=== PATIENT | male | born 1965 | race Caucasian/White ===

== ENCOUNTER 2017-05-03 11:46 | Emergency (ER) | payer OTHER ==
[~2017-05-03] VITALS: Ht 188 cm; Wt 93.0 kg
[2017-05-03 11:47] VITALS: BP 101/61
== END 2017-05-03 13:17 | disposition home or self-care (01) ==
LOC: ER 11:49
DX: H00.022 Hordeolum internum right lower eyelid (principal); M06.9 Rheumatoid arthritis, unspecified; F17.200 Nicotine dependence, unspecified, uncomplicated; F10.10 Alcohol abuse, uncomplicated; Z88.2 Allergy status to sulfonamides
CPT/HCPCS: 99283; A4606; Z7610

== ENCOUNTER 2017-09-10 13:48 | Emergency (ER) | payer OTHER ==
[~2017-09-10] VITALS: Ht 188 cm; Wt 107.0 kg
[2017-09-10 15:14] LABS: BASOPHILS % (AUTO) 0.8 % (0.0-2.0); EOSINOPHILS % (AUTO) 1.5 % (0.0-6.0); HEMATOCRIT 36 % (39-51); HEMOGLOBIN 12.4 g/dL (13.5-17.5); LYMPHOCYTES # (AUTO) 1.6 /CMM (0.8-4.8); LYMPHOCYTES % (AUTO) 28.1 % (20.0-44.0); MEAN CORPUSCULAR HGB CONC 35 g/dl (31.0-36.0); MEAN CORPUSCULAR VOLUME 109 fL (80-96); MONOCYTES # (AUTO) 0.4 /CMM (0.1-1.30); MONOCYTES % (AUTO) 6.9 % (2.0-12.0); NEUTROPHILS # (AUTO) 3.4 /CMM (1.8-8.9); NEUTROPHILS % (AUTO) 62.7 % (43.0-81.0); PLATELET COUNT (AUTO) 276 /CMM (150-450); RDW COEFFICIENT OF VARIATION 13.4 (11.5-15.0); WHITE BLOOD COUNT (AUTO) 5.5 K/uL (4.3-11.0)
[2017-09-10 15:22] LABS: CALCIUM, SERUM 8.9 mg/dL (8.5-10.1); CREATININE 0.5 mg/dL (0.6-1.3); POTASSIUM 3.3 mmol/L (3.5-5.1)
[2017-09-10 15:27] LABS: ALBUMIN 3.2 g/dL (3.4-5.0); BILIRUBIN,DIRECT 0.2 mg/dL (0.0-0.2); BILIRUBIN,TOTAL 0.5 mg/dL (0.2-1.0)
[2017-09-10 16:27] VITALS: BP 130/80
--- NOTE | 2017-09-10 16:28 | NUR ---
Patient discharged to home in stable condition. Written and verbal after care instructions given. Patient verbalizes understanding of instruction.
== END 2017-09-10 16:30 | disposition home or self-care (01) ==
LOC: ER 13:51
DX: K59.00 Constipation, unspecified (principal); M06.9 Rheumatoid arthritis, unspecified; F17.200 Nicotine dependence, unspecified, uncomplicated; Z88.2 Allergy status to sulfonamides
CPT/HCPCS: 36415; 74176; 80048; 80076; 83690; 85025; 99285; A4606; Z7610

== ENCOUNTER 2018-11-29 11:06 | Emergency (ER) | payer OTHER ==
[~2018-11-29] VITALS: Ht 188 cm; Wt 81.6 kg
[2018-11-29 11:25] VITALS: BP 111/73
--- NOTE | 2018-11-29 11:46 | NUR ---
HUMIRA SHOT GIVEN ON R THIGH, WELL TOLERATED, NO REACTION NOTED.
--- NOTE | 2018-11-29 11:46 | NUR ---
Patient discharged to home in stable condition. Written and verbal after care instructions given. Patient verbalizes understanding of instruction.
== END 2018-11-29 11:47 | disposition home or self-care (01) ==
LOC: ER 11:06
DX: Z00.8 Encounter for other general examination (principal); M06.9 Rheumatoid arthritis, unspecified; M79.7 Fibromyalgia; F17.200 Nicotine dependence, unspecified, uncomplicated; Z88.2 Allergy status to sulfonamides

== ENCOUNTER 2020-11-29 21:39 | Inpatient (IN) | payer OTHER ==
[~2020-11-29] VITALS: Ht 189.2 cm; Wt 81.2 kg
--- NOTE | 2020-11-29 21:53 | NUR ---
SON ([facility]) [phone]
[2020-11-29 22:15] LABS: BASOPHILS % (AUTO) 0.2 % (0.0-2.0); HEMATOCRIT 45 % (39-51); HEMOGLOBIN 14.5 g/dL (13.5-17.5); LYMPHOCYTES # (AUTO) 0.4 K/uL (0.8-4.8); LYMPHOCYTES % (AUTO) 6.3 % (20.0-44.0); MEAN CORPUSCULAR HGB CONC 33 g/dl (31.0-36.0); MEAN CORPUSCULAR VOLUME 111 fL (80-96); MONOCYTES # (AUTO) 0.5 K/uL (0.1-1.30); MONOCYTES % (AUTO) 8.2 % (2.0-12.0); NEUTROPHILS % (AUTO) 85.3 % (43.0-81.0); RED BLOOD CELL COUNT(AUTO) 3.99 MIL/uL (4.5-6.0); WHITE BLOOD COUNT (AUTO) 5.9 K/uL (4.3-11.0)
--- NOTE | 2020-11-29 22:15 | NUR ---
PT OUT FOR CT.
[2020-11-29 22:30] LABS: CALCIUM, SERUM 8.5 mg/dL (8.5-10.1); CARBON DIOXIDE 16 mmol/L (21-32); CHLORIDE 90 mmol/L (98-107); CREATININE 1.1 mg/dL (0.6-1.3); GLUCOSE 322 mg/dL (74-106); POTASSIUM 5.5 mmol/L (3.5-5.1); SODIUM SERUM 137 mmol/L (136-145); UREA NITROGEN, BLOOD 10 mg/dL (7-18)
[2020-11-29] MEDS ORDERED: IV NS 0.9% 1,000 ML BAG IV ONE (22:30)
[2020-11-29] MEDS ORDERED: ONDANSETRON HCL/PF 4 MG/2 ML VIAL IV ONE (22:30)
--- NOTE | 2020-11-29 22:40 | NUR ---
PT RETURNED TO ER ROOM 1
[2020-11-29] MEDS ORDERED: ONDANSETRON HCL/PF 4 MG/2 ML VIAL ONE (22:42)
[2020-11-29 22:46] LABS: ALANINE AMINOTRANSFERASE 43 U/L (12-78); ALBUMIN 4.3 g/dL (3.4-5.0); ALKALINE PHOSPHATASE 137 U/L (46-116); ASPARTATE AMINOTRANSFERASE 139 U/L (15-37); BILIRUBIN,DIRECT 1.1 mg/dL (0.0-0.2); BILIRUBIN,TOTAL 2.2 mg/dL (0.2-1.0); LIPASE 54 U/L (73-393)
[2020-11-29 23:00] LABS: ABG BASE EXCESS -6.8 mmol/L; ABG OXYGEN SATURATION 96.4 % (92.0-98.5); ABG PCO2 25.8 mmHg (35.0-45.0); ABG PO2 87.6 mmHg (75.0-100.0); AaDO2 31.2 mmHg; COHb 0.9 % (0.5-1.5); MetHb 0.3 % (0.0-1.5); O2Hb 95.2 % (94.0-97.0); SITE, ABG Left Radial; VENT MODE, BG Room Air
[2020-11-29] MEDS ORDERED: INSULIN REGULAR, HUMAN 100 UNIT/ML 10 ML VIAL SQ ONE (23:00)
[2020-11-29] MEDS ORDERED: INSULIN REGULAR, HUMAN 100 UNITS in IV NS 0.9% 100 ML IV PRN (23:00)
--- NOTE | 2020-11-29 23:00 | NUR ---
MRSA SWAB COLLECTED AND SENT TO LAB. PATIENT'S BELONGINGS LIST DONE.
[2020-11-29] MEDS: IV NS 0.9% 1,000 ML BAG IV ONE ×2 (23:07)
[2020-11-29] MEDS ORDERED: INSULIN REGULAR, HUMAN 100 UNIT/ML 10 ML VIAL ONE (23:10)
--- NOTE | 2020-11-29 23:13 | NUR ---
SPOKE WITH CARLOS CLIPPER MACHINE FOR CLINICAL REPORT. PT IS OK AND AUTHORIZED TO STAY HERE.
[2020-11-29 23:19] LABS: ACETAMINOPHEN < 2 ug/ml (10-30)
[2020-11-29 23:33] LABS: CALCIUM, SERUM 8.7 mg/dL (8.5-10.1); CREATININE 1.1 mg/dL (0.6-1.3); POTASSIUM 5.6 mmol/L (3.5-5.1)
--- NOTE | 2020-11-29 23:33 | NUR ---
LACTIC ACID 4.4
[2020-11-29 23:39] LABS: LYMPHOCYTES % (MANUAL) 5 % (16-48); MONOCYTES % (MANUAL) 12 % (0-11.0); NEUTROPHILS % (MANUAL) 83 (42-76)
[2020-11-29 23:41] LABS: PLATELET COUNT (AUTO) 52 K/uL (150-450)
[2020-11-29] MEDS ORDERED: PIPERACILLIN /TAZOBACTAM 3.375 G VIAL IV ONE (23:43)
[2020-11-30] VITALS (11 sets, daily range): BP systolic 117–134; BP diastolic 69–79
--- NOTE | 2020-11-30 00:22 | NUR ---
PT IS TOLERATING THE IVF WELL, NO S/S OF INFILTRATION NOTED. DENIES PAIN.
[2020-11-30] MEDS ORDERED: Z GUARD REMEDY 2 OZ OINT TP PRN (00:30)
[2020-11-30] MEDS ORDERED: IV NS 0.9% 1,000 ML BAG IV ONE (00:30)
[2020-11-30] MEDS ORDERED: ONDANSETRON HCL/PF 4 MG/2 ML VIAL IVP PRN (00:30)
[2020-11-30] MEDS ORDERED: MAG HYDROX/AL HYDROX/SIMETH 30 ML UDC PO PRN (00:30)
[2020-11-30] MEDS ORDERED: MAGNESIUM HYDROXIDE 30 ML UDC PO PRN (00:30)
[2020-11-30 01:07] LABS: BILIRUBIN,URINE MODERATE (NEGATIVE); COLOR,URINE YELLOW (YELLOW); LEUKOCYTE ESTERASE ,URINE Negative (NEGATIVE); NITRITE, URINE Negative (NEGATIVE); PROTEIN,URINE 100 mg/dl (NEGATIVE); UGLUCOSE Negative (NEGATIVE)
--- NOTE | 2020-11-30 01:59 | NUR ---
NS FLUIDS COMPLETED INFUSED TOTAL OF 2.5 L NO S/S OF INFILTRATION. STILL WAITING FOR BED TO BE ADMITTED.
--- NOTE | 2020-11-30 02:40 | NUR ---
LACTIC ACID 2.3
[2020-11-30] MEDS ORDERED: INSULIN REGULAR, HUMAN 100 UNIT/ML 10 ML VIAL ONE (03:01)
--- NOTE | 2020-11-30 04:36 | NUR ---
STARTED INSULIN DRIP AT 2.34 U/HR ORDERED. CONTIUE TO MONITOR. PT SHOW NO DISTRESS OR DISCOMFORT, NO S/S OF HYPO OR HYPERGLYCEMIA NOTED. Addendum: 11/30/20 at 0705 by BRIGID STARTED INSULIN DRIP AT 0307 AT 1.89 UNITS/HR BS WAS 126
[2020-11-30] MEDS: INSULIN REGULAR, HUMAN 100 UNIT in IV NS 0.9% 99 ML IV PRN ×2 (05:40→06:34)
[2020-11-30] MEDS: IV D5/0.45 NACL 1,000 ML IV PRN ×2 (05:41→18:35)
[2020-11-30] MEDS ORDERED: PIPERACILLIN /TAZOBACTAM 3.375 G in IV D5W 50 ML IV ONE ×2 (06:00)
[2020-11-30] MEDS ORDERED: PIPERACILLIN /TAZOBACTAM 3.375 G VIAL IV ONE (06:17)
--- NOTE | 2020-11-30 08:00 | NUR ---
LAB AT BEDSIDE
--- NOTE | 2020-11-30 08:12 | NUR ---
COVID SWAB DONE AND SENT TO LAB
[2020-11-30] MEDS ORDERED: TURM500C9 PO (08:25)
[2020-11-30] MEDS ORDERED: ACET-2605 PO (08:25)
[2020-11-30] MEDS ORDERED: GLUC100017 PO (08:25)
[2020-11-30] MEDS ORDERED: BUSP5TAB3 PO (08:25)
[2020-11-30] MEDS ORDERED: ONDA-97 PO (08:25)
[2020-11-30 08:28] LABS: CALCIUM, SERUM 7.8 mg/dL (8.5-10.1); POTASSIUM 3.8 mmol/L (3.5-5.1)
[2020-11-30] MEDS ORDERED: PANTOPRAZOLE 40 MG VIAL IV SCH (09:00)
[2020-11-30] MEDS ORDERED: PANTOPRAZOLE 40 MG VIAL ONE (09:27)
[2020-11-30] MEDS ORDERED: PIPERACILLIN /TAZOBACTAM 3.375 G in IV D5W 50 ML IV SCH (12:00)
[2020-11-30] MEDS: PIPERACILLIN /TAZOBACTAM 3.375 G in IV D5W 100 ML IV SCH ×2 (12:09→19:52)
[2020-11-30] MEDS ORDERED: busPIRone 5 MG TABLET PO PRN (15:30)
[2020-11-30 15:43] LABS: POTASSIUM 3.9 mmol/L (3.5-5.1)
[2020-11-30] MEDS ORDERED: busPIRone 5 MG TABLET ONE (16:28)
--- NOTE | 2020-11-30 17:06 | NUR ---
room 258
--- NOTE | 2020-11-30 17:37 | NUR ---
GAVE REPORT TO CEFERINO OCAMPO FOR JOSÉ MIGUEL
--- NOTE | 2020-11-30 18:30 | NUR ---
RN NOTES PT RECEIVED FROM ER , INSULIN DRIP AT 4 U/HR OF AND D51/2 NS AT 200CC/HR . NO SIGN AND SYMPTOMS OF DISTRESS NOTED .
--- NOTE | 2020-11-30 18:30 | NUR ---
ADMISSION NOTE PT ARRIVED TO ICU ESCORTED BY RN ON ED GURSEBASTOPOL. PT IS A&OX4, DISPLAYING NO S/S OF DISTRESS, PT ENDORSES NO PAIN AND IS BREATHING EVEN AND UNLABORED ON RA. DAMARIS WESLEY RECEIVED REPORT OF PT PRIOR TO ARRIVAL. PT TRANSFERRED FROM ED RSEBASTOPOL TO HOSP BED VIA DRAW SHEET. PT GIVEN CLEAN LINEN AND PLACED ON MONITOR. VS ARE 98.6 F, 87 HR, 92% SPO2, RR 20, 120/79. ADMISSION WILL BE ENDORSED TO [facility].
--- NOTE | 2020-11-30 19:15 | NUR ---
RECEIVED PT ON BED AWAKE ON RA SPO2 98% NO SIGN OF RESPIRATORY DISTRESS, TELE MONITOR READS SINUS RHYTHM 80'S, HAVE RAC # 20 AND LEFT HAND # 20 IV PATENT AND FLUSHED,WITH ONGOING INSULIN DRIP TO BE TITRATE PER PROTOCOL, AND D5NS @ 200ML/HR INFUSING WELL BED ON LOWEST POSITION AND LOCKED SIDE RAILS UP X2 CALL LIGHT WITHIN REACH WILL CONT TO MONITOR
[2020-11-30] MEDS: BLOOD SUGAR DIAGNOSTIC 1 EACH STRIP IN SCH ×2 (20:08→21:03)
[2020-11-30 20:28] LABS: CALCIUM, SERUM 7.6 mg/dL (8.5-10.1); CREATININE 0.9 mg/dL (0.6-1.3); POTASSIUM 3.3 mmol/L (3.5-5.1)
--- NOTE | 2020-11-30 21:41 | NUR ---
REPORTED TO DR JACKSON THAT PT LATEST BLOOD SUGAR IS 126 AND ANION GAP 13 K+3.3 WITH ORDER TO STOP INSULIN DRIP AND THE IV FLUID, AND ORDER CCHO DIET AND MODERATE SLIDING SCALE INSULIN ACHS NOTED AND CARRIED OUT
[2020-11-30] MEDS ORDERED: DEXTROSE 50%-WATER 50 ML DISP.SYRIN IV PRN (22:00)
[2020-11-30] MEDS: BLOOD SUGAR DIAGNOSTIC 1 EACH STRIP VI SCH (22:13)
[2020-11-30] MEDS: *INSULIN REGULAR(HUMULIN R)HUM 100 UNIT/ML VIAL SQ PRN (22:13)
[2020-11-30] MEDS: POTASSIUM CL. PREMIX PERIPHER. 50 ML IV SCH (23:40)
[2020-11-30] MEDS: IV NS 0.9% 1,000 ML IV SCH (23:41)
[2020-12-01] VITALS (24 sets, daily range): BP systolic 107–130; BP diastolic 67–88
[2020-12-01] MEDS: POTASSIUM CL. PREMIX PERIPHER. 50 ML IV SCH ×2 (00:41→01:43)
[2020-12-01 03:05] LABS: CREATININE, URINE 71.7 MG/DL (30.0-125.0)
[2020-12-01] MEDS: PIPERACILLIN /TAZOBACTAM 3.375 G in IV D5W 100 ML IV SCH ×3 (03:51→19:47)
[2020-12-01 04:28] LABS: BASOPHILS % (AUTO) 0.5 % (0.0-2.0); EOSINOPHILS % (AUTO) 0.5 % (0.0-6.0); HEMATOCRIT 34 % (39-51); LYMPHOCYTES # (AUTO) 1.3 K/uL (0.8-4.8); LYMPHOCYTES % (AUTO) 39.3 % (20.0-44.0); MEAN CORPUSCULAR HGB CONC 35 g/dl (31.0-36.0); MEAN CORPUSCULAR VOLUME 111 fL (80-96); MONOCYTES # (AUTO) 0.3 K/uL (0.1-1.30); MONOCYTES % (AUTO) 10.2 % (2.0-12.0); NEUTROPHILS # (AUTO) 1.7 K/uL (1.8-8.9); NEUTROPHILS % (AUTO) 49.5 % (43.0-81.0); PLATELET COUNT (AUTO) 28 K/uL (150-450); RED BLOOD CELL COUNT(AUTO) 3.11 MIL/uL (4.5-6.0); WHITE BLOOD COUNT (AUTO) 3.4 K/uL (4.3-11.0)
[2020-12-01 04:36] LABS: ALBUMIN 3.2 g/dL (3.4-5.0); BILIRUBIN,TOTAL 1.4 mg/dL (0.2-1.0); CALCIUM, SERUM 7.7 mg/dL (8.5-10.1); CREATININE 0.8 mg/dL (0.6-1.3); PHOSPHORUS 1.3 mg/dL (2.5-4.9); POTASSIUM 3.7 mmol/L (3.5-5.1); TOTAL PROTEIN, SERUM 6.7 g/dL (6.4-8.2)
[2020-12-01 04:48] LABS: THYROID STIMULATING HORMONE 4.529 uIU/mL (0.358-3.74)
[2020-12-01 04:49] LABS: BAND % (MANUAL) 1 % (0.0-5.0); EOSINOPHILS % (MANUAL) 1 % (0-4); LYMPHOCYTES % (MANUAL) 43 % (16-48); MONOCYTES % (MANUAL) 6 % (0-11.0); NEUTROPHILS % (MANUAL) 49 (42-76)
--- NOTE | 2020-12-01 07:00 | NUR ---
PT ON BED AWAKE ON RA NO SIGN OF RESPIRATORY DISTRESS NO PAIN COMPLAINT BED SIDE MONITOR READS SINUS RHYTHM NO SIGNIFICANT CHANGES ON CONDITION NOTED ALL NEEDS ATTENDED WILL CONT TO MONITOR
[2020-12-01] MEDS: BLOOD SUGAR DIAGNOSTIC 1 EACH STRIP VI SCH ×4 (07:34→21:37)
[2020-12-01] MEDS: INSULIN REGULAR, HUMAN 100 UNIT/ML 3 ML VIAL SQ PRN ×2 (07:35→12:14)
[2020-12-01] MEDS: PANTOPRAZOLE 40 MG TABLET.DR PO SCH (08:29)
--- NOTE | 2020-12-01 08:58 | NUR ---
ENDORSED TO JOIE OCAMPO FOR JOSÉ MIGUEL
--- NOTE | 2020-12-01 09:00 | NUR ---
RN NOTES RECEIVED PT FROM AXEL OCAMPO. VS STABLE. WILL CONTINUE TO MONITOR.
[2020-12-01] MEDS: IV NS 0.9% 1,000 ML IV SCH ×2 (09:38→19:30)
--- NOTE | 2020-12-01 12:00 | NUR ---
RN NOTES BLOOD SUGAR OF 120, NO INSULIN COVERAGE.
--- NOTE | 2020-12-01 13:55 | NUR ---
RN NOTES TRANSFERRED PT TO 3W ROOM 326-1 PER PROTOCOL. REPORT GIVEN TO ROBBIE OCAMPO AT BEDSIDE FOR JOSÉ MIGUEL. VS STABLE.
--- NOTE | 2020-12-01 14:00 | NUR ---
RN NOTE PATIENT WAS TRANSFERRED FROM ICU 258 TO RM 326-1. PT WAS BROUGHT UP VIA WHEELCHAIR. RECEIVED BEDSIDE REPORT FROM DAMARIS RADER. A/O X4. ON ROOM AIR, SATURATING WELL AT 95%. BP 130/83 LA 87 RR 18 T 98.3 DENIES ANY PAIN OR DISCOMFORT AT THIS TIME. IV ACCESS ON L HAND #20 G AND R AC #20 G, ZOSYN RUNNING X 25 ML/HR, INTACT AND PATENT. SAFETY MEASURES MAINTAINED. BED IN LOWEST POSITION, BRAKES LOCKED. SIDE RAILS UP X2. CALL LIGHT WITHIN REACH. WILL CONTINUE PLAN OF CARE.
[2020-12-01] MEDS ORDERED: K PHOS NEUTRAL 250 MG TABLET PO ONE (16:00)
--- NOTE | 2020-12-01 18:10 | NUR ---
RN CLOSING NOTE PATIENT RESTING IN BED. A/O X4 ON ROOM AIR, NO SOB NOTED. NO S/S OF RESPIRATORY DISTRESS. DENIES ANY PAIN OR DISCOMFORT AT THIS TIME. IV ACCESS ON L HAND #20 G AND R AC #20, NS X 100 ML/HR, INTACT AND PATENT. DUE MEDS GIVEN ORDERED. ALL NEEDS HAVE BEEN MET AND ATTENDED. SAFETY MEASURES MAINTAINED. BED IN LOWEST POSITION, BRAKES LOCKED. SIDE RAILS UP X2. KEPT CALL LIGHT WITHIN REACH. WILL ENDORSE CONTINUITY OF CARE TO ONCOMING SHIFT.
--- NOTE | 2020-12-01 19:15 | NUR ---
MS RN NOTES RECEIVED ON BED A/8 X4,NO SOB,TRANSFER FROM ICU,WITH SALINE LOCK LEFT HAND INTACT AND PATENT,RIGHT AC SALINE LOCK INTACT AND PATENT,PATIENT WANTS IT TO BE REMOVE IN THE MORNING.PATIENT SAYS HE CANNOT WALK,URINAL AT BEDSIDE, WELL BEDPAN.TABLE WITH IN REACH.CALL LIGHT IN REACH,NEEDS ANTICIPATED.
[2020-12-01] MEDS: ACETAMINOPHEN 325 MG TABLET PO PRN (21:38)
--- NOTE | 2020-12-01 21:38 | NUR ---
MS RN NOTES PAIN MANAGEMENT C/O BACK PAIN,TYLENOL 650MG PO GIVEN PER PATIENT REQUEST
--- NOTE | 2020-12-01 21:45 | NUR ---
MS RN NOTES ACCU-CHECK BLOOD SUGAR CHECK 127,NO INSULIN COVERAGE.
[2020-12-02] MEDS: PIPERACILLIN /TAZOBACTAM 3.375 G in IV D5W 100 ML IV SCH ×3 (04:32→19:01)
[2020-12-02] MEDS: IV NS 0.9% 1,000 ML IV SCH (05:30)
[2020-12-02] MEDS: BLOOD SUGAR DIAGNOSTIC 1 EACH STRIP VI SCH ×4 (05:36→21:09)
--- NOTE | 2020-12-02 05:45 | NUR ---
MS RN NOTES ACCU-CHECK BLOOD SUGAR CHECK 119,NO INSULIN COVERAGE.
[2020-12-02 06:23] LABS: BASOPHILS % (AUTO) 0.6 % (0.0-2.0); EOSINOPHILS % (AUTO) 1.9 % (0.0-6.0); HEMATOCRIT 34 % (39-51); HEMOGLOBIN 12.1 g/dL (13.5-17.5); LYMPHOCYTES # (AUTO) 1.2 K/uL (0.8-4.8); LYMPHOCYTES % (AUTO) 43.8 % (20.0-44.0); MEAN CORPUSCULAR HGB CONC 36 g/dl (31.0-36.0); MEAN CORPUSCULAR VOLUME 114 fL (80-96); MONOCYTES # (AUTO) 0.2 K/uL (0.1-1.30); MONOCYTES % (AUTO) 9.2 % (2.0-12.0); NEUTROPHILS # (AUTO) 1.2 K/uL (1.8-8.9); NEUTROPHILS % (AUTO) 44.5 % (43.0-81.0); RED BLOOD CELL COUNT(AUTO) 2.95 MIL/uL (4.5-6.0); WHITE BLOOD COUNT (AUTO) 2.7 K/uL (4.3-11.0)
--- NOTE | 2020-12-02 06:47 | NUR ---
MS RN NOTES SLEPT WELL AT NIGHT.IV ABX TOLERATED WELL,VOIDING FREELY VIA URINAL,IVF TO KEEP VEIN OPEN.IN NO ACUTE DISTRESS.CALL LIGHT IN REACH,NEEDS ATTENDED.
--- NOTE | 2020-12-02 07:34 | NUR ---
MS RN OPENING NOTE RECEIVED PATIENT ASLEEP IN BED, ALERT AN ORIENTED X 4. NOT IN ANY APPARENT DISTRESS. IV ACCESS LHAND AND LA PATENT AND INTACT. BREATHING IS EVEN AND UNLABORED. TOLERATING WELL ON ROOM AIR. SAFETY MEASURES IN PLACE WITH BED LOCKED AT LOW POSITION AND SIDE RAILS UP X2. CALL LIGHT IS WITHIN REACH. WILL CONTINUE TO MONITOR THROUGHOUT SHIFT.
[2020-12-02 07:46] LABS: POTASSIUM 3.1 mmol/L (3.5-5.1)
[2020-12-02 07:47] LABS: CALCIUM, SERUM 7.6 mg/dL (8.5-10.1); CREATININE 0.5 mg/dL (0.6-1.3); PHOSPHORUS 2.5 mg/dL (2.5-4.9)
[2020-12-02 07:51] LABS: PLATELET COUNT (AUTO) 25 K/uL (150-450)
[2020-12-02 08:00] VITALS: BP 124/79
--- NOTE | 2020-12-02 08:01 | NUR ---
MS RN NOTE RECEIVED CRITICAL LAB VALUE OF PLATELET, SPOKE WITH BONNIE FROM LAB. ANKUSH AVALOS, CHARGE NURSE AND DR. Jose FELIX WITH NO NEW ORDERS.
[2020-12-02] MEDS: PANTOPRAZOLE 40 MG TABLET.DR PO SCH (08:29)
[2020-12-02] MEDS: ACETAMINOPHEN 325 MG TABLET PO PRN ×2 (08:48→19:18)
[2020-12-02] MEDS ORDERED: POTASSIUM CHLORIDE 20 MEQ TAB.PRT.SR PO ONE (10:00)
[2020-12-02 13:07] LABS: *C PEPTIDE 2.2 ng/mL (1.1-4.4); *INSULIN 4.6 uIU/mL (2.6-24.9)
[2020-12-02 16:00] VITALS: BP 102/58
--- NOTE | 2020-12-02 19:19 | NUR ---
MS RN CLOSING NOTE PATIENT IN BED, RESTING. NOT IN ANY APPARENT DISTRESS. REATHING IS EVEN AND UNLABORED. TOLERATING WELL ON ROOM AIR. ALL NEEDS MET THROUGHOUT SHIFT. SAFETY MEASURES MAINTAINED. CALL LIGHT IS WITHIN REACH. WILL ENDORSE CONTINUITY OF CARE TO ONCOMING SHIFT.
--- NOTE | 2020-12-02 19:59 | NUR ---
MS RN OPENING NOTES Patient is awake, A&Ox4. States he has minimal headache PRN tylenol given by AM nurse at change of shift -will f/u for effect. No signs of hypo or hyperglycemic reactions noted. Patient currently hooked up to IV ABX tolerating well at this time. No other issues or complaints. Patient reports that he has been gaining his strength back and can walk again like he used to.
[2020-12-02 20:00] VITALS: BP 131/66
[2020-12-03] MEDS: PIPERACILLIN /TAZOBACTAM 3.375 G in IV D5W 100 ML IV SCH (03:53)
[2020-12-03 06:58] LABS: BASOPHILS % (AUTO) 0.5 % (0.0-2.0); EOSINOPHILS % (AUTO) 2.6 % (0.0-6.0); HEMATOCRIT 34 % (39-51); HEMOGLOBIN 12.3 g/dL (13.5-17.5); LYMPHOCYTES % (AUTO) 38.4 % (20.0-44.0); MEAN CORPUSCULAR HGB CONC 36 g/dl (31.0-36.0); MEAN CORPUSCULAR VOLUME 112 fL (80-96); MONOCYTES # (AUTO) 0.3 K/uL (0.1-1.30); MONOCYTES % (AUTO) 10.1 % (2.0-12.0); NEUTROPHILS # (AUTO) 1.3 K/uL (1.8-8.9); NEUTROPHILS % (AUTO) 48.4 % (43.0-81.0); RED BLOOD CELL COUNT(AUTO) 3.04 MIL/uL (4.5-6.0); WHITE BLOOD COUNT (AUTO) 2.7 K/uL (4.3-11.0)
--- NOTE | 2020-12-03 07:00 | NUR ---
Patient is A&Ox4. VSS. No signs of hypo or hyperglycemic reactions noted. No insulin coverage needed. Tolerating IV ABX well, no ase. Able to make needs known. All needs met.
[2020-12-03] MEDS: BLOOD SUGAR DIAGNOSTIC 1 EACH STRIP VI SCH ×4 (07:03→22:07)
--- NOTE | 2020-12-03 07:30 | NUR ---
MANUFACTURING APPLICATIONS ENGINEER OPENING NOTES RECEIVED PATIENT ON BED, AWAKE AND A/O X4. ON ROOM AIR BREATHING EVENLY AND UNLABORED. NOT IN DISTRESS. WITH NO COMPLAINTS OF PAIN OR DISCOMFORT AT THIS TIME. WITH IV ACCESS AT LEFT AC G18 HEPLOCK, PATENT AND INTACT. SAFETY MEASURES IN PLACED. CALL LIGHT WITHIN EASY REACH. BED ON LOWEST AND LOCKED POSITION. SIDE RAILS UP X2. WILL CONTINUE TO MONITOR. Addendum: 12/03/20 at 0801 by ANTONINA FREY RN DOCUMENTED ON WRONG PATIENT.
--- NOTE | 2020-12-03 07:30 | NUR ---
MS RN OPENING NOTES RECEIVED PATIENT ON BED, AWAKE AND A/O X4. ON ROOM AIR, BREATHING EVENLY AND UNLABORED. NOT IN DISTRESS. WITH NO COMPLAINTS OF PAIN AND DISCOMFORT AT THIS TIME. WITH IV ACCESS AT LEFT HAND G20 AND AT RIGHT AC G20, BOTH SALINE LOCKED, PATENT AND INTACT. SAFETY MEASURES IN PLACED. CALL LIGHT WITHIN REACH. BED ON LOWEST AND LOCKED POSITION WITH SIDE RAILS UP X2. WILL CONTINUE TO MONITOR.
[2020-12-03 07:31] LABS: PLATELET COUNT (AUTO) 24 K/uL (150-450)
[2020-12-03 07:43] LABS: CALCIUM, SERUM 7.7 mg/dL (8.5-10.1); CREATININE 0.5 mg/dL (0.6-1.3); POTASSIUM 2.9 mmol/L (3.5-5.1)
[2020-12-03] MEDS: PANTOPRAZOLE 40 MG TABLET.DR PO SCH (08:15)
[2020-12-03] MEDS: ACETAMINOPHEN 325 MG TABLET PO PRN ×2 (08:15→18:42)
[2020-12-03 08:36] VITALS: BP 128/82
[2020-12-03] MEDS ORDERED: POTASSIUM CHLORIDE 20 MEQ TAB.PRT.SR PO ONE (09:30)
[2020-12-03 12:15] LABS: EOSINOPHILS % (MANUAL) 1 % (0-4); LYMPHOCYTES % (MANUAL) 38 % (16-48); MONOCYTES % (MANUAL) 7 % (0-11.0); NEUTROPHILS % (MANUAL) 54 (42-76)
[2020-12-03 16:10] VITALS: BP 146/94
--- NOTE | 2020-12-03 18:56 | NUR ---
MS RN CLOSING NOTES PATIENT ON BED, AWAKE AND A/O X4. ON ROOM AIR, BREATHING EVENLY AND UNLABORED. NOT IN DISTRESS. WITH NO COMPLAINTS OF PAIN AND DISCOMFORT AT THIS TIME. WITH IV ACCESS AT LEFT HAND G20 AND AT RIGHT AC G20, BOTH SALINE LOCKED, PATENT AND INTACT. SAFETY MEASURES IN PLACED. CALL LIGHT WITHIN REACH. BED ON LOWEST AND LOCKED POSITION WITH SIDE RAILS UP X2. WILL ENDORSE TO NEXT SHIFT FOR JOSÉ MIGUEL.
[2020-12-03 20:00] VITALS: BP 138/78
--- NOTE | 2020-12-03 20:10 | NUR ---
MS RN OPENING NOTES; RECEIVED PATIENT AWAKE IN BED, BED IN LOW POSITION, CALL LIGHTS WITHIN REACH, NO COMPLAIN OF PAIN AND DISCOMFORT AT THIS TIME, ON RA NO SOB NOTED, A/O X4 ABLE CE MAKE NEEDS KNOWN, ON BRP WITH ASSISTANCE AND USING WALKER, REMIND PATIENT TO USE CALL LIGHTS WHEN GOING TO BATHROOM, PATIENT KEPT CLEAN AND DRY, ALL NEEDS MET, WILL CONTINUE TO MONITOR.
[2020-12-03] MEDS: *INSULIN REGULAR(HUMULIN R)HUM 100 UNIT/ML VIAL SQ PRN (22:07)
--- NOTE | 2020-12-04 07:04 | NUR ---
N CLOSING NOTES: PATIENT SLEEP IN BED COMFORTABLY, BED IN LOW POSITION, CALL LIGHTS WITHIN REACH, NO COMPLAIN OF PAIN AND DISCOMFORT AT THIS TIME, AMBULATORY WITH SUPERVISION, A/O X4 ABLE TO MAKE NEEDS KNOWN, WITH IV LINE AT L HAND #20SL PATIENT KEPT CLEAN AND DRY, ALL NEEDS MET, ENDORSE TO INCOMING SHIFT.
[2020-12-04 07:38] LABS: BASOPHILS % (AUTO) 0.6 % (0.0-2.0); EOSINOPHILS % (AUTO) 2.7 % (0.0-6.0); HEMATOCRIT 35 % (39-51); HEMOGLOBIN 12.2 g/dL (13.5-17.5); LYMPHOCYTES # (AUTO) 1.3 K/uL (0.8-4.8); LYMPHOCYTES % (AUTO) 41.9 % (20.0-44.0); MEAN CORPUSCULAR HGB CONC 35 g/dl (31.0-36.0); MEAN CORPUSCULAR VOLUME 112 fL (80-96); MONOCYTES # (AUTO) 0.4 K/uL (0.1-1.30); MONOCYTES % (AUTO) 12.7 % (2.0-12.0); NEUTROPHILS # (AUTO) 1.3 K/uL (1.8-8.9); NEUTROPHILS % (AUTO) 42.1 % (43.0-81.0); RED BLOOD CELL COUNT(AUTO) 3.11 MIL/uL (4.5-6.0); WHITE BLOOD COUNT (AUTO) 3.1 K/uL (4.3-11.0)
[2020-12-04 07:43] LABS: CREATININE 0.5 mg/dL (0.6-1.3); POTASSIUM 3.6 mmol/L (3.5-5.1)
[2020-12-04] MEDS: BLOOD SUGAR DIAGNOSTIC 1 EACH STRIP VI SCH ×4 (07:45→21:33)
[2020-12-04 07:47] LABS: PLATELET COUNT (AUTO) 29 K/uL (150-450)
--- NOTE | 2020-12-04 07:54 | NUR ---
MS/RN OPENING NOTES RECEIVED PATIENT SETTING ON BED AWAKE ALERT AND ORIENTED X4. PATIENT IS ON ROOM AIR. PATIENT IN NO APPARENT RESPIRATORY DISTRESS NOTED. NO COMPLAINED OF PAIN NOTED AT THIS TIME. WILL CONTINUE TO MONITOR.
[2020-12-04 08:00] VITALS: BP 136/95
[2020-12-04] MEDS: ACETAMINOPHEN 325 MG TABLET PO PRN (08:25)
[2020-12-04] MEDS: PANTOPRAZOLE 40 MG TABLET.DR PO SCH (08:25)
[2020-12-04 11:19] LABS: LYMPHOCYTES % (MANUAL) 44 % (16-48); MONOCYTES % (MANUAL) 10 % (0-11.0); NEUTROPHILS % (MANUAL) 46 (42-76)
--- NOTE | 2020-12-04 14:19 | NUR ---
MS/RN NOTES PATIENT COMPLAINED OF PAIN RATED 7/10, DR. FELIX ORDER NORCO 5/325 MG P.O. ONCE. NOTED AND CARRIED OUT.
[2020-12-04] MEDS ORDERED: HYDROCODONE/APAP 5/325MG TABLET PO ONE (14:30)
[2020-12-04 16:00] VITALS: BP 131/80
--- NOTE | 2020-12-04 19:27 | NUR ---
MS/RN CLOSING NOTES PATIENT IS ALERT AND ORIENTED X4. PATIENT IS ON ROOM AIR. PATIENT IN NO APPARENT RESPIRATORY DISTRESS NOTED. NO COMPLAINED OF PAIN NOTED AT THIS TIME. SEEN AND EXAMINED BY MD WITH ORDERS MADE AND CARRIED OUT. ALL DUE MEDICATIONS WAS GIVEN. IV ACCESS AT LEFT HAND # 20 G AND RIGHT AC #20G PATENT AND INTACT. SAFETY PRECAUTIONS WAS IN PLACED. BED IN LOWEST POSITION AND LOCKED. SIDERAILS UP X2. CALL LIGHT WITHIN REACH. WILL ENDORSED TO RECOVERY COLLECTOR FOR JOSÉ MIGUEL.
--- NOTE | 2020-12-04 19:43 | NUR ---
Patient is A&Ox4. No signs of distress. L HAND #20g PIV intact and patent. No s/s of obvious bleeding. NO s/s of hypo or hyperglycemic reactions at this time. Will continue to monitor.
[2020-12-04 20:00] VITALS: BP 143/96
--- NOTE | 2020-12-05 06:35 | NUR ---
MS RN CLOSING NOTES Patient stable overnight. VS WNL. A&Ox4. No hypo or hyperglycemic reactions. Steady walking to bathroom with walker. All needs met by staff.
[2020-12-05 06:38] LABS: BASOPHILS % (AUTO) 0.6 % (0.0-2.0); EOSINOPHILS % (AUTO) 3.1 % (0.0-6.0); HEMATOCRIT 34 % (39-51); HEMOGLOBIN 11.9 g/dL (13.5-17.5); LYMPHOCYTES # (AUTO) 1.3 K/uL (0.8-4.8); LYMPHOCYTES % (AUTO) 39.5 % (20.0-44.0); MEAN CORPUSCULAR HGB CONC 35 g/dl (31.0-36.0); MEAN CORPUSCULAR VOLUME 114 fL (80-96); MONOCYTES # (AUTO) 0.5 K/uL (0.1-1.30); MONOCYTES % (AUTO) 15.7 % (2.0-12.0); NEUTROPHILS # (AUTO) 1.3 K/uL (1.8-8.9); NEUTROPHILS % (AUTO) 41.1 % (43.0-81.0); RED BLOOD CELL COUNT(AUTO) 2.96 MIL/uL (4.5-6.0); WHITE BLOOD COUNT (AUTO) 3.3 K/uL (4.3-11.0)
[2020-12-05 06:43] LABS: CALCIUM, SERUM 8.5 mg/dL (8.5-10.1); CREATININE 0.6 mg/dL (0.6-1.3); POTASSIUM 3.4 mmol/L (3.5-5.1)
[2020-12-05 06:44] LABS: PLATELET COUNT (AUTO) 48 K/uL (150-450)
[2020-12-05] MEDS: BLOOD SUGAR DIAGNOSTIC 1 EACH STRIP VI SCH (06:44)
--- NOTE | 2020-12-05 07:50 | NUR ---
MS/RN OPENING NOTES RECEIVED PATIENT IS ON BED AWAKE ALERT AND ORIENTED X4. PATIENT IS ON ROOM AIR. PATIENT IN NO APPARENT RESPIRATORY DISTRESS NOTED. NO COMPLAINED OF PAIN NOTED AT THIS TIME. WILL CONTINUE TO MONITOR.
[2020-12-05] MEDS ORDERED: POTASSIUM CHLORIDE 20 MEQ TAB.PRT.SR PO SCH (08:00)
[2020-12-05] MEDS: PANTOPRAZOLE 40 MG TABLET.DR PO SCH (09:07)
[2020-12-05] MEDS: ACETAMINOPHEN 325 MG TABLET PO PRN (09:09)
[2020-12-05 10:02] LABS: NEUTROPHILS % (MANUAL) 51 (42-76)
[2020-12-05 10:03] LABS: EOSINOPHILS % (MANUAL) 5 % (0-4); LYMPHOCYTES % (MANUAL) 35 % (16-48); MONOCYTES % (MANUAL) 9 % (0-11.0)
--- NOTE | 2020-12-05 10:35 | NUR ---
MS/RN NOTES PATIENT IS ALERT AND ORIENTED C Addendum: 12/05/20 at 1036 by CHELO NEWMAN RN ERROR
--- NOTE | 2020-12-05 10:36 | NUR ---
MS/RN NOTES PATIENT IS ALERT AND ORIENTED X4. PATIENT IS ON ROOM AIR. PATIENT IN NO APPARENT RESPIRATORY DISTRESS NOTED. NO COMPLAINED OF PAIN NOTED AT THIS TIME. SEEN AND EXAMINED BY MD WITH ORDERS MADE AND CARRIED OUT. ALL DUE MEDICATIONS WAS GIVEN. PATIENT REFUSED MORNING VITAL SIGN EXPLAINED THE RISK AND BENEFITS. DISCHARGED INSTRUCTIONS WAS GIVEN AND PATIENT VERBALIZED UNDERSTANDING. PATIENT LEFT THE HOSPITAL IN MEDICALLY STABLE CONDITION, GEOPHYSICAL E LOGGER BY HIS UNCLE VIA PRIVATE CAR.
== END 2020-12-05 10:30 | disposition home or self-care (01) | DRG 420 ==
LOC: ER 21:41 → TRANSITION 11-30 03:07 → ICU 11-30 17:46 → MED 12-01 13:56
PROVIDERS: ADMIT Hospitalist; ATTEND Family Medicine
DX: E11.10 Type 2 diabetes mellitus with ketoacidosis without coma (principal); D84.9 Immunodeficiency, unspecified; N17.9 Acute kidney failure, unspecified; D69.6 Thrombocytopenia, unspecified; K74.60 Unspecified cirrhosis of liver; M06.9 Rheumatoid arthritis, unspecified; E87.5 Hyperkalemia; F17.210 Nicotine dependence, cigarettes, uncomplicated; E87.6 Hypokalemia; K86.1 Other chronic pancreatitis; R29.6 Repeated falls; M79.7 Fibromyalgia; Z88.2 Allergy status to sulfonamides; Z79.899 Other long term (current) drug therapy; Z91.81 History of falling; N40.0 Benign prostatic hyperplasia without lower urinary tract symptoms; I70.0 Atherosclerosis of aorta; R41.0 Disorientation, unspecified; L73.2 Hidradenitis suppurativa; M77.9 Enthesopathy, unspecified
CPT/HCPCS: 36415; 36600; 70450-TC; 71045-TC; 72125-TC; 72128-TC; 80048-TC; 80053-TC; 80061-TC; 80074; 80076-TC; 82010-TC; 82570-TC; 82962-TC; 83605-TC; 83690-TC; 84100-TC; 84155-TC; 84443-TC; 84484-TC; 85025-TC; 85730-TC; 87040-TC; 87081-TC; 97112-TC; 97116-TC; 97530-TC; C9113; G0378; G0480; J1815; J2405; J2543; J3480; J3490; J7030; J7040; J7050; J7060

== ENCOUNTER 2021-03-22 19:59 | Emergency (ER) | payer OTHER ==
[~2021-03-22] VITALS: Ht 188 cm; Wt 79.4 kg
[~2021-03-22 19:59] MED LIST: ACET-2605 PO; BUSP5TAB3 PO; GLUC100017 PO; ONDA-97 PO; TURM500C9 PO
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
[2021-03-22] MEDS ORDERED: TDAP [DIPH/PERTUSSIS/TET] 0.5 ML VIAL IM ONE ×2 (21:00→21:46)
--- NOTE | 2021-03-22 21:34 | NUR ---
DR AMOS ON THE PHONE W/ DR CORONA
[2021-03-22] MEDS ORDERED: LIDOCAINE 1%-EPI 1:100,000 20 ML VIAL ONE (21:45)
[2021-03-22 21:50] LABS: BASOPHILS # (AUTO) 0.1 K/uL (0.0-0.2); BASOPHILS % (AUTO) 2.7 % (0.0-2.0); EOSINOPHILS % (AUTO) 0.6 % (0.0-6.0); HEMATOCRIT 37 % (39-51); HEMOGLOBIN 12.5 g/dL (13.5-17.5); LYMPHOCYTES # (AUTO) 0.8 K/uL (0.8-4.8); LYMPHOCYTES % (AUTO) 24.2 % (20.0-44.0); MEAN CORPUSCULAR HGB CONC 34 g/dl (31.0-36.0); MEAN CORPUSCULAR VOLUME 112 fL (80-96); MONOCYTES # (AUTO) 0.2 K/uL (0.1-1.30); MONOCYTES % (AUTO) 6.4 % (2.0-12.0); NEUTROPHILS # (AUTO) 2.2 K/uL (1.8-8.9); NEUTROPHILS % (AUTO) 66.1 % (43.0-81.0); PLATELET COUNT (AUTO) 75 K/uL (150-450); RED BLOOD CELL COUNT(AUTO) 3.27 MIL/uL (4.5-6.0); WHITE BLOOD COUNT (AUTO) 3.3 K/uL (4.3-11.0)
--- NOTE | 2021-03-22 22:03 | NUR ---
COVID SWAB COLLECTED AND SENT TO LAB
--- NOTE | 2021-03-22 22:08 | NUR ---
[facility] [phone] Addendum: 03/22/21 at 2209 by ALICIA FAX NUMBER LISTED
--- NOTE | 2021-03-22 22:14 | NUR ---
PER DR SNYDER, WHO SPOKE TO [facility] NO BED AVAILABLE TILL AM
--- NOTE | 2021-03-22 22:18 | NUR ---
SPOKE TO ANILA AT [facility] AND FAXED CLININCALS TO [phone]
--- NOTE | 2021-03-22 22:30 | NUR ---
MARITZA, EMT CALLED [facility]. UNABLE TO ACCPET THE PT THEY'RE ON [facility]
--- NOTE | 2021-03-22 22:35 | NUR ---
REC'D A CALL FROM TY AT [facility] SAYING "NO INTERVENTION NEEDED SO WE'RE NOT ACCEPTING THE PT". MADE AWARE
--- NOTE | 2021-03-22 23:22 | NUR ---
[facility] CALLED THAT THEY CANNOT TAKE THE PATIENT BECAUSE HOSPITAL AND SERVICES IS AT CAPACITY.
--- NOTE | 2021-03-22 23:23 | NUR ---
GOT A CALL FROM GARRET AT [facility] SAYING THAT THE PT CAN MOST LIKELY BE TRANSFERRED AT 7AM WHEN THEY HAVE A BED AVAILABLE
[2021-03-23 00:16] LABS: CALCIUM, SERUM 8.8 mg/dL (8.5-10.1); CARBON DIOXIDE 11 mmol/L (21-32); CHLORIDE 92 mmol/L (98-107); CREATININE 0.9 mg/dL (0.6-1.3); GLUCOSE 93 mg/dL (74-106); SODIUM SERUM 136 mmol/L (136-145); UREA NITROGEN, BLOOD 5 mg/dL (7-18)
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
[2021-03-23] MEDS ORDERED: IV D5/0.45 NACL 1,000 ML IV ONE (01:30)
--- NOTE | 2021-03-23 01:37 | NUR ---
CALLED [facility] AND SPOKE TO CORDELL AT [phone] FOR POSSIBLE TRANSFER. REQUESTING MD TO MD CALL AT [phone] GORDON
--- NOTE | 2021-03-23 01:48 | NUR ---
DR SNYDER SPOKE TO DR GORDON, NEURO SURGEO. " HE DID NOT ACCPET THE PT"
--- NOTE | 2021-03-23 05:14 | NUR ---
PT AWAKE AND ALERT. REQUESTING ASSISTANCE W/ URINAL. URINE COLLECTED AND SENT TO LAB. NO NEURO DEFICIT NOTED. PT REMAINED STABLE.
--- NOTE | 2021-03-23 05:26 | NUR ---
CALLED [facility] AT [phone] AND SPOKE TO BALTAZAR FOR AN UPDATE. PER HER [facility] AND [facility] ARE UNABLE TO ACCEPT THE PT. SHE WILL UPDATE ME REGARDING [facility] AND WHEN THE BED IS AVAILABLE.
--- NOTE | 2021-03-23 06:18 | NUR ---
FOLLOWED UP W/ BALTAZAR AT [facility]. PT WILL GO TO [place] STILL AWAITING FOR BED ASSIGNMENT
--- NOTE | 2021-03-23 06:37 | NUR ---
FAXED CLINICALS AND FACESHEET TO [facility] AT [phone]
--- NOTE | 2021-03-23 07:40 | NUR ---
THE PATIENT IS RECEIVED IN ER BED #11. THEPATIENT IS ALERT AND ORIENTED X4. DENIES PAIN AT THIS TIME. IN ROOM AIR AND DENIES SOB. RESPIRATION REGULAR AND UNLABORED. WILL CONTINUE TO MONITOR THE PATIENT.
--- NOTE | 2021-03-23 08:16 | NUR ---
PT COMFORTBABLY IN BED. ALERT AND ORIENTATED X4. VITALS ARE WITHIN NORMAL LIMITS. BREATHING IS EVEN AND UNLABORED.
--- NOTE | 2021-03-23 08:32 | NUR ---
[facility] BED 1426. GIVE REPORT TO [phone]. CALLED BY DAMARIS RUBIN FROM [facility]. ACCESS WILL CALL ABOUT TRANSFER.
--- NOTE | 2021-03-23 08:36 | NUR ---
THE PATIENT IS ACCEPTED TO [facility] ROOM [address] BONNIE BACK NURSING SUP [phone] REG FROM TRANSPORT CENTER [phone]
--- NOTE | 2021-03-23 08:36 | NUR ---
Amy ángela in ED - 03/23/21 at 0841 by MARTÍNEZ THE PATIENT IS ACCEPTED TO [facility] ROOM [address] BONNIE BACK NURSING SUP NUMBER IS [phone]
--- NOTE | 2021-03-23 08:38 | NUR ---
REG WILL SET UP TRANSFER WITH [facility].
--- NOTE | 2021-03-23 08:52 | NUR ---
REPORT GIVEN TO SHIRA
--- NOTE | 2021-03-23 09:04 | NUR ---
THE PATIENT IS MADE AWARE TAHT HE GOT ACCEPTED TO [facility] ROOM 4529
--- NOTE | 2021-03-23 09:06 | NUR ---
OPAL FINNEY FROM [facility] TRANSFER CENTER TRANSPO IS ARRANGED FOR UMBRELLA REPAIRER AT 0384
--- NOTE | 2021-03-23 09:11 | NUR ---
CALLED [facility] FOR TRANSPORT TO [facility]. THEY HAVE NO ALS AVAILABLE.
[2021-03-23] MEDS ORDERED: ONDANSETRON HCL/PF 4 MG/2 ML VIAL ONE ×2 (09:13→12:41)
--- NOTE | 2021-03-23 09:19 | NUR ---
CALLED [facility] CALL THE CAR. NO ETA PROVIDED, WILL CALL BACK WITH ETA. CONFIRMATION NUMBER #[id number]
[2021-03-23] MEDS ORDERED: ONDANSETRON HCL/PF - ER 4 MG/2 ML VIAL IV ONE (09:30)
--- NOTE | 2021-03-23 10:16 | NUR ---
AAOX4, PT SPEAKING, COMFORT MEASURES IN PLACE, VS STABLE
--- NOTE | 2021-03-23 11:33 | NUR ---
PT LAYING IN BED COMFORTABLY. ADDITIONAL BLANKETS GIVEN, COMFORT MEASURES IN PLACE
--- NOTE | 2021-03-23 11:33 | NUR ---
PT SPEAKING, AAOX4, VS STABLE, ON MONITOR, WILL CONTINUE TO MONITOR
[2021-03-23] MEDS ORDERED: ONDANSETRON HCL/PF 4 MG/2 ML VIAL IV ONE (13:00)
[2021-03-23 13:24] VITALS: BP 111/67
--- NOTE | 2021-03-23 14:00 | NUR ---
TRANSPORTATION ARRIVED TO TAKE PT TO [facility]. REPORT WAS GIVEN.
[2021-03-23 23:28] LABS: LYMPHOCYTES % (MANUAL) 26 % (16-48); MONOCYTES % (MANUAL) 7 % (0-11.0); NEUTROPHILS % (MANUAL) 67 (42-76)
== END 2021-03-23 14:15 | disposition short-term general hospital (02) ==
LOC: ER 19:59
DX: S06.5X9A Traumatic subdural hemorrhage with loss of consciousness of unspecified duration, initial encounter (principal); S01.01XA Laceration without foreign body of scalp, initial encounter; R40.2252 Coma scale, best verbal response, oriented, at arrival to emergency department; R40.2362 Coma scale, best motor response, obeys commands, at arrival to emergency department; R40.2142 Coma scale, eyes open, spontaneous, at arrival to emergency department; W01.10XA Fall on same level from slipping, tripping and stumbling with subsequent striking against unspecified object, initial encounter; Y92.039 Unspecified place in apartment as the place of occurrence of the external cause; F10.229 Alcohol dependence with intoxication, unspecified; Y90.8 Blood alcohol level of 240 mg/100 ml or more; M06.9 Rheumatoid arthritis, unspecified; D69.6 Thrombocytopenia, unspecified; D72.819 Decreased white blood cell count, unspecified; D64.9 Anemia, unspecified; Z20.822 Contact with and (suspected) exposure to COVID-19; Z82.49 Family history of ischemic heart disease and other diseases of the circulatory system; R00.0 Tachycardia, unspecified
CPT/HCPCS: 12001; 36415; 70450; 71045; 72125; 80048; 80307; 80320; 84484; 85007; 85025; 85730; 87426; 90471; 90715; 93005; 96361; 96374; 96376; 99285; A6403 ×3; C9803; J2405 ×3; J3490; G0480

== ENCOUNTER 2021-09-20 10:44 | Emergency (ER) | payer OTHER ==
[~2021-09-20] VITALS: Ht 188 cm; Wt 78.5 kg
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
[2021-09-20 11:53] LABS: BASOPHILS % (AUTO) 1.1 % (0.0-2.0); EOSINOPHILS % (AUTO) 0.1 % (0.0-6.0); HEMATOCRIT 29 % (39-51); HEMOGLOBIN 9.5 g/dL (13.5-17.5); LYMPHOCYTES # (AUTO) 0.5 K/uL (0.8-4.8); LYMPHOCYTES % (AUTO) 11.8 % (20.0-44.0); MEAN CORPUSCULAR HGB CONC 33 g/dl (31.0-36.0); MEAN CORPUSCULAR VOLUME 107 fL (80-96); MONOCYTES # (AUTO) 0.5 K/uL (0.1-1.30); MONOCYTES % (AUTO) 12.5 % (2.0-12.0); NEUTROPHILS # (AUTO) 3.2 K/uL (1.8-8.9); NEUTROPHILS % (AUTO) 74.5 % (43.0-81.0); RED BLOOD CELL COUNT(AUTO) 2.68 MIL/uL (4.5-6.0); WHITE BLOOD COUNT (AUTO) 4.2 K/uL (4.3-11.0)
[2021-09-20] MEDS ORDERED: HYDR25TA4 PO (12:05)
[2021-09-20] MEDS ORDERED: LISI40TA13 PO (12:05)
[2021-09-20 12:14] LABS: PLATELET COUNT (AUTO) 32 K/uL (150-450)
--- NOTE | 2021-09-20 12:14 | NUR ---
CALLED NURSING SUP REGARDING PT BED
[2021-09-20 12:35] LABS: ALANINE AMINOTRANSFERASE 20 U/L (12-78); ALBUMIN 3.6 g/dL (3.4-5.0); ALKALINE PHOSPHATASE 92 U/L (46-116); ASPARTATE AMINOTRANSFERASE 102 U/L (15-37); BILIRUBIN,DIRECT 2.1 mg/dL (0.0-0.2); BILIRUBIN,TOTAL 3.3 mg/dL (0.2-1.0); CALCIUM, SERUM 8.5 mg/dL (8.5-10.1); CARBON DIOXIDE 14 mmol/L (21-32); CHLORIDE 92 mmol/L (98-107); CREATININE 1.1 mg/dL (0.6-1.3); GLUCOSE 129 mg/dL (74-106); POTASSIUM 3.6 mmol/L (3.5-5.1); SODIUM SERUM 131 mmol/L (136-145); TOTAL PROTEIN, SERUM 7.8 g/dL (6.4-8.2); UREA NITROGEN, BLOOD 8 mg/dL (7-18)
--- NOTE | 2021-09-20 13:19 | NUR ---
RAPID COVID SWAB DONE AND SENT TO LAB
[2021-09-20 14:04] LABS: BAND % (MANUAL) 11 % (0.0-5.0); LYMPHOCYTES % (MANUAL) 15 % (16-48); METAMYELOCYTES % 1 % (0-0); MONOCYTES % (MANUAL) 11 % (0-11.0); NEUTROPHILS % (MANUAL) 62 (42-76)
--- NOTE | 2021-09-20 14:25 | NUR ---
pt stated, " i can not walk on my own now even with my walker, i need a wheelchair". When asked when this happened he stated, " about 2 weeks ago he could no longer walk with walker and has had to use wheel chair ever since." able to move all extremities on command, kala neal
--- NOTE | 2021-09-20 16:29 | NUR ---
DR. WINSTON NOLAN TO WITH DR. CHRISTENSEN.
--- NOTE | 2021-09-20 17:25 | NUR ---
pt able to make needs known, talks and thinks things through very slowly, intelligent, very well eduated though process is slow at this time.
--- NOTE | 2021-09-20 17:41 | NUR ---
[employer] CALLED REGARDING PT WEIGHT AND WAS NOTIFIED THAT WE WILL RECIEVE A CALL WITH PT BED NUMBER AND NUMBER FOR REPORT
[2021-09-20 18:02] VITALS: BP 117/74
--- NOTE | 2021-09-20 18:04 | NUR ---
[place] [id number] # FOR REPORT: [phone]
--- NOTE | 2021-09-20 18:18 | NUR ---
REPORT GIVEN TO CHANCE OCAMPO OF [facility].
--- NOTE | 2021-09-20 18:20 | NUR ---
Amy motta in [facility] - 09/20/21 at 1852 by GIOVANNI CALLED [facility] AND SET UP BLS TRANSPORT ETA [phone]
--- NOTE | 2021-09-20 18:52 | NUR ---
CALLED [facility] AND SET UP BLS TRANSPORT ETA [phone]
--- NOTE | 2021-09-20 20:01 | NUR ---
[facility] ARRIVED FOR TRANSPORT
== END 2021-09-20 20:31 | disposition short-term general hospital (02) ==
LOC: ER 10:46
DX: R62.7 Adult failure to thrive (principal); I62.03 Nontraumatic chronic subdural hemorrhage; D64.9 Anemia, unspecified; D69.6 Thrombocytopenia, unspecified; R17 Unspecified jaundice; Z20.822 Contact with and (suspected) exposure to COVID-19
CPT/HCPCS: 36415; 70450; 76705; 80048; 80076; 82962; 84484; 85007; 85025; 85730; 87426; 93005; 99291; 99292; C9803

== ENCOUNTER 2022-02-26 09:08 | Inpatient (IN) | payer OTHER ==
[~2022-02-26] VITALS: Ht 188 cm; Wt 75.3 kg
[2022-02-26] MEDS ORDERED: ONDANSETRON HCL/PF 4 MG/2 ML VIAL IVP ONE (09:30)
[2022-02-26] MEDS ORDERED: IV NS 0.9% 1,000 ML BAG IV ONE (09:30)
[2022-02-26] MEDS ORDERED: MORPHINE SULFATE INJ 2 MG/ML DISP.SYRIN IV ONE ×2 (09:30→11:00)
[2022-02-26] MEDS ORDERED: MORPHINE SULFATE INJ 4 MG/ML DISP.SYRIN ONE (09:34)
[2022-02-26] MEDS ORDERED: ONDANSETRON HCL/PF 4 MG/2 ML VIAL ONE (09:34)
[2022-02-26 10:22] LABS: CALCIUM, SERUM 9.3 mg/dL (8.5-10.1); CREATININE 0.8 mg/dL (0.6-1.3); POTASSIUM 4.2 mmol/L (3.5-5.1)
--- NOTE | 2022-02-26 10:22 | NUR ---
IV LINE ESTABLISHED R FOREARM # 20 SL. BLOOD SAMPLES COLLECTED.
[2022-02-26 10:25] LABS: BASOPHILS % (AUTO) 0.3 % (0.0-2.0); EOSINOPHILS % (AUTO) 0.2 % (0.0-6.0); HEMATOCRIT 40 % (39-51); HEMOGLOBIN 13.9 g/dL (13.5-17.5); LYMPHOCYTES # (AUTO) 1.2 K/uL (0.8-4.8); LYMPHOCYTES % (AUTO) 13.2 % (20.0-44.0); MEAN CORPUSCULAR HGB CONC 35 g/dl (31.0-36.0); MEAN CORPUSCULAR VOLUME 97 fL (80-96); MONOCYTES # (AUTO) 0.3 K/uL (0.1-1.30); MONOCYTES % (AUTO) 3.2 % (2.0-12.0); NEUTROPHILS # (AUTO) 7.8 K/uL (1.8-8.9); NEUTROPHILS % (AUTO) 83.1 % (43.0-81.0); PLATELET COUNT (AUTO) 125 K/uL (150-450); RED BLOOD CELL COUNT(AUTO) 4.16 MIL/uL (4.5-6.0); WHITE BLOOD COUNT (AUTO) 9.4 K/uL (4.3-11.0)
[2022-02-26 10:28] LABS: ALBUMIN 4.2 g/dL (3.4-5.0); BILIRUBIN,DIRECT 0.6 mg/dL (0.0-0.2); BILIRUBIN,TOTAL 1.2 mg/dL (0.2-1.0); TOTAL PROTEIN, SERUM 8.9 g/dL (6.4-8.2)
[2022-02-26] MEDS ORDERED: MORPHINE SULFATE INJ 2 MG/ML DISP.SYRIN ONE ×2 (11:12→19:04)
--- NOTE | 2022-02-26 12:25 | NUR ---
URINE COLLECTED AND SENT TO LAB
[2022-02-26 12:28] LABS: SITE, VBG Right Radial; VBG COHb 0.7 %; VBG MetHb 0.2 %; VBG O2Hb 95.7 %; VENT MODE, VBG ROOMAIR
[2022-02-26 12:46] LABS: BILIRUBIN,URINE NEGATIVE (NEGATIVE); COLOR,URINE YELLOW (YELLOW); LEUKOCYTE ESTERASE ,URINE NEGATIVE (NEGATIVE); NITRITE, URINE NEGATIVE (NEGATIVE); PH,URINE 5.5 (5.0-8.0); PROTEIN,URINE TRACE mg/dl (NEGATIVE); UGLUCOSE NEGATIVE (NEGATIVE); UROBILINOGEN,URINE 0.2 EU/dL (0.2)
[2022-02-26 12:48] LABS: BACTERIA,URINE None seen /HPF (None Seen); RBC,URINE 0-2 /HPF (0-2); SQUAMOUS EPITHELIAL CELL,UR Rare /HPF (None Seen); WBC,URINE 0-2 /HPF (0-3)
--- NOTE | 2022-02-26 13:26 | NUR ---
MOVE SHEET SUBMITTED
[2022-02-26] MEDS ORDERED: IV LR 1000 ML 1,000 ML IV ONE (13:30)
[2022-02-26] MEDS: CEFTRIAXONE 1GM BAG (ER ONLY) 1 GM/50 ML PIGGYBACK IV ONE (14:00)
--- NOTE | 2022-02-26 14:15 | NUR ---
COVID AND MRSA SWABS OBTAINED AND PLACED IN DROP-OFF BOX
[2022-02-26] MEDS ORDERED: ACETAMINOPHEN 325 MG TABLET PO PRN (14:30)
[2022-02-26] MEDS ORDERED: ONDANSETRON HCL/PF 4 MG/2 ML VIAL IVP PRN (14:30)
[2022-02-26] MEDS ORDERED: CEFTRIAXONE 1 G in IV D5W 50 ML IV ONE (15:00)
[2022-02-26] MEDS: IV NS 0.9% 1,000 ML IV SCH ×2 (15:27→20:13)
[2022-02-26 15:50] LABS: CREATINE KINASE, TOTAL 48 U/L (39-308)
--- NOTE | 2022-02-26 15:50 | NUR ---
Rocephin 1 g IV order was entered duplicate by pharmacy, first order was marked non-admin by RN and second order marked as administered. Patient received one dose of 1 g rocephin IV.
[2022-02-26] MEDS: MORPHINE SULFATE INJ 2 MG/ML DISP.SYRIN IV PRN (19:08)
[2022-02-26 19:30] LABS: ALBUMIN 3.7 g/dL (3.4-5.0); BILIRUBIN,TOTAL 1.3 mg/dL (0.2-1.0); CALCIUM, SERUM 8.7 mg/dL (8.5-10.1); CREATININE 0.8 mg/dL (0.6-1.3); POTASSIUM 4.5 mmol/L (3.5-5.1)
[2022-02-26] MEDS: VANCOMYCIN 1 GM in IV D5W 250 ML IV SCH (21:00)
[2022-02-26] MEDS ORDERED: HEPARIN SODIUM, PORCINE 5000 UNITS/1 ML VIAL ONE (22:57)
[2022-02-26] MEDS: CEFEPIME 2 GM in IV D5W 100 ML IV SCH (23:00)
[2022-02-26] MEDS: HEPARIN SODIUM, PORCINE 5000 UNITS/1 ML VIAL SQ SCH (23:00)
[2022-02-27] MEDS: VANCOMYCIN 1 GM in IV D5W 250 ML IV SCH ×3 (05:00→19:35)
[2022-02-27] MEDS ORDERED: MORPHINE SULFATE INJ 2 MG/ML DISP.SYRIN ONE (05:13)
[2022-02-27] MEDS: MORPHINE SULFATE INJ 2 MG/ML DISP.SYRIN IV PRN ×4 (05:17→22:54)
[2022-02-27 05:50] LABS: BASOPHILS % (AUTO) 0.4 % (0.0-2.0); EOSINOPHILS % (AUTO) 0.4 % (0.0-6.0); HEMATOCRIT 35 % (39-51); HEMOGLOBIN 12.4 g/dL (13.5-17.5); LYMPHOCYTES # (AUTO) 1.6 K/uL (0.8-4.8); LYMPHOCYTES % (AUTO) 23.8 % (20.0-44.0); MEAN CORPUSCULAR HGB CONC 35 g/dl (31.0-36.0); MEAN CORPUSCULAR VOLUME 97 fL (80-96); MONOCYTES # (AUTO) 0.5 K/uL (0.1-1.30); MONOCYTES % (AUTO) 7.2 % (2.0-12.0); NEUTROPHILS # (AUTO) 4.4 K/uL (1.8-8.9); NEUTROPHILS % (AUTO) 68.2 % (43.0-81.0); PLATELET COUNT (AUTO) 102 K/uL (150-450); RED BLOOD CELL COUNT(AUTO) 3.64 MIL/uL (4.5-6.0); WHITE BLOOD COUNT (AUTO) 6.5 K/uL (4.3-11.0)
[2022-02-27] MEDS: CEFEPIME 2 GM in IV D5W 100 ML IV SCH ×3 (06:00→13:46)
[2022-02-27 06:18] LABS: ALBUMIN 3.4 g/dL (3.4-5.0); BILIRUBIN,TOTAL 1.3 mg/dL (0.2-1.0); CALCIUM, SERUM 9.1 mg/dL (8.5-10.1); CREATININE 0.8 mg/dL (0.6-1.3); MAGNESIUM 1.7 mg/dL (1.8-2.4); PHOSPHORUS 1.6 mg/dL (2.5-4.9); POTASSIUM 4.2 mmol/L (3.5-5.1); TOTAL PROTEIN, SERUM 7.5 g/dL (6.4-8.2)
--- NOTE | 2022-02-27 08:41 | NUR ---
GOT BED 108
--- NOTE | 2022-02-27 08:58 | NUR ---
PT REPORT GIVEN TO DAMARIS GOLD
[2022-02-27 09:30] VITALS: BP 113/62
--- NOTE | 2022-02-27 09:30 | NUR ---
RN NOTES RECEIVED PT FROM ER, A/Ox4, ANXIOUS , ON RA, NO SOB NOTED, ON TELE SR HR IN 60'S , IV SITE CDI, EXCORIATION NOTED ON BUTTOCKS AND BACK , SKIN CARE DONE, SR SR UP x3, CALL LIGHT WITHIN EASY REACH, BED LOCKED AND IN LOWEST POSITION , CONTINUE TO MONITOR
--- NOTE | 2022-02-27 09:32 | NUR ---
PT TRANSFERRED TO 108 VIA [facility] ACLS PROTOCOL. WARM HANDOFF GIVEN TO DAMARIS GOLD
[2022-02-27] MEDS ORDERED: MAGNESIUM OXIDE 400 MG TABLET PO ONE (10:00)
[2022-02-27] MEDS: HEPARIN SODIUM, PORCINE 5000 UNITS/1 ML VIAL SQ SCH ×2 (10:04→22:07)
[2022-02-27] MEDS ORDERED: ENOX40DI9 SQ (10:52)
[2022-02-27] MEDS ORDERED: ADAL40PE5 SQ (10:52)
[2022-02-27] MEDS ORDERED: LEVO50TA8 PO (10:52)
[2022-02-27] MEDS ORDERED: ACET-73 PO (10:52)
[2022-02-27] MEDS ORDERED: CALC500T52 PO (10:52)
[2022-02-27] MEDS ORDERED: FERR325T24 PO (10:52)
[2022-02-27] MEDS ORDERED: HYDR-3973 PO (10:52)
[2022-02-27] MEDS ORDERED: CELE-85 PO (10:52)
[2022-02-27] MEDS ORDERED: K PHOS NEUTRAL 250 MG TABLET PO ONE (11:00)
--- NOTE | 2022-02-27 11:17 | NUR ---
WOUND CARE CONSULT: LIMITED ASSESSMENT DUE TO PT REFUSING AND STATES HAS TOO MUCH DISCOMFORT. INNER THIGHS NOTED TO HAVE SCARRING, DUE TO HISTORY OF HYDRADENITIS SUPPURATIVA (UNDER CONTROL WITH HUMIRA, PER PT REPORT). LEFT BUTTOCK OPEN SKIN NOTED IN ADMISSION PHOTO. PT STATES WAS AT HOME WHEN HE HAD MOISTURE ISSUE OVERNIGHT AND SKIN BECAME IRRITATED/OPEN. RECOMMENDATIONS MADE FOR SKIN PROTECTION AND WOUND CARE. DISCUSSED WITH NURSING STAFF. MD IN AGREEMENT WITH PLAN OF CARE.
[2022-02-27 12:00] VITALS: BP 114/69
[2022-02-27 16:00] VITALS: BP 112/63
--- NOTE | 2022-02-27 18:15 | NUR ---
RN NOTES PT STABLE, SUPPORTIVE FAMILY AT THE BEDSIDE , PT ANXIOUS AT TIMES, ON TELE SR , NO SIGNIFICANT CHANGES NOTED ON THIS SHIFT, WILL ENDORSE TO MILKING MACHINE TECHNICIAN NURSE FOR CONTINUITY OF CARE .
[2022-02-27 20:00] VITALS: BP 106/56
[2022-02-28] VITALS: BP 109/64
[2022-02-28] MEDS: VANCOMYCIN 1 GM in IV D5W 250 ML IV SCH ×3 (03:17→20:04)
[2022-02-28 04:00] VITALS: BP 110/67
[2022-02-28] MEDS: CEFEPIME 2 GM in IV D5W 100 ML IV SCH ×3 (05:33→22:16)
[2022-02-28 06:35] LABS: BASOPHILS % (AUTO) 2.3 % (0.0-2.0); EOSINOPHILS % (AUTO) 2.5 % (0.0-6.0); HEMATOCRIT 36 % (39-51); HEMOGLOBIN 12.7 g/dL (13.5-17.5); LYMPHOCYTES % (AUTO) 30.7 % (20.0-44.0); MEAN CORPUSCULAR HGB CONC 36 g/dl (31.0-36.0); MEAN CORPUSCULAR VOLUME 99 fL (80-96); MONOCYTES % (AUTO) 7.2 % (2.0-12.0); NEUTROPHILS % (AUTO) 57.3 % (43.0-81.0); PLATELET COUNT (AUTO) 121 K/uL (150-450); RED BLOOD CELL COUNT(AUTO) 3.58 MIL/uL (4.5-6.0); WHITE BLOOD COUNT (AUTO) 4.7 K/uL (4.3-11.0)
[2022-02-28 06:36] LABS: BASOPHILS # (AUTO) 0.1 K/uL (0.0-0.2); LYMPHOCYTES # (AUTO) 1.4 K/uL (0.8-4.8); MONOCYTES # (AUTO) 0.3 K/uL (0.1-1.30); NEUTROPHILS # (AUTO) 2.7 K/uL (1.8-8.9)
[2022-02-28] MEDS: MORPHINE SULFATE INJ 2 MG/ML DISP.SYRIN IV PRN ×3 (06:37→20:04)
--- NOTE | 2022-02-28 07:00 | NUR ---
RN NOTES RECEIVED PT ON BED, A/Ox4, ON RA, NO SOB NOTED, ON TELE SR HR IN 60'S , IV SITE CDI, SR SR UP x3, CALL LIGHT WITHIN EASY REACH, BED LOCKED AND IN LOWEST POSITION , CONTINUE TO MONITOR .
--- NOTE | 2022-02-28 07:10 | NUR ---
RN NOTES, PATIENT ON RA, NO SOB/ACUTE DISTRESS NOTED, ON TELE SR HR IN 60'S MOSTLY DURING THE NIGHT, WOUND CONSULT FOR EXCORIATION ON BUTTOCKS AND BACK , SR UP x3, CALL LIGHT WITHIN REACH, BED LOCKED AND IN LOWEST POSITION , ENDORSED TO ASIF RN FOR CONTINUATION OF CARE.
[2022-02-28 07:15] LABS: CALCIUM, SERUM 8.7 mg/dL (8.5-10.1); CREATININE 0.6 mg/dL (0.6-1.3); MAGNESIUM 1.7 mg/dL (1.8-2.4); PHOSPHORUS 2.1 mg/dL (2.5-4.9); POTASSIUM 4.8 mmol/L (3.5-5.1)
[2022-02-28 08:00] VITALS: BP 108/70
[2022-02-28] MEDS: HEPARIN SODIUM, PORCINE 5000 UNITS/1 ML VIAL SQ SCH ×2 (08:25→20:08)
[2022-02-28] MEDS: Magnesium 1GM/D5W 100ML PREMIX 100 ML IV SCH ×2 (10:02→11:28)
[2022-02-28 12:00] VITALS: BP 107/65
[2022-02-28] MEDS ORDERED: NEUTRA PHOS 1 POWD.PACKET PO ONE (12:00)
--- NOTE | 2022-02-28 12:00 | NUR ---
RN NOTES NO DISTRESS NOTED CONTINUE TO MONITOR .
[2022-02-28 16:00] VITALS: BP 117/68
--- NOTE | 2022-02-28 18:06 | NUR ---
RN NOTES NO SIGNIFCANT CHANGES NOTED ON THIS SHIFT, WILL ENDORSE TO FIELD REP NURSE FOR CONTINUITY OF CARE
[2022-02-28 20:00] VITALS: BP 100/66
[2022-03-01] VITALS: BP 106/66
[2022-03-01] MEDS: MORPHINE SULFATE INJ 2 MG/ML DISP.SYRIN IV PRN ×2 (00:03→10:13)
[2022-03-01] MEDS: VANCOMYCIN 1 GM in IV D5W 250 ML IV SCH ×2 (03:30→11:12)
[2022-03-01 04:00] VITALS: BP 100/65
[2022-03-01] MEDS: CEFEPIME 2 GM in IV D5W 100 ML IV SCH ×2 (05:29→12:59)
--- NOTE | 2022-03-01 06:35 | NUR ---
RN NOTES, PATIENT ON RA, NO SOB/ACUTE DISTRESS NOTED, ON TELE SR HR IN 60'S MOSTLY DURING THE NIGHT, OTHERWISE NO SIGNIFICANT CHANGE IN CONDITION DURING THE NIGHT, ON PAIN MANAGEMENT, SR UP x3, CALL LIGHT WITHIN REACH, BED LOCKED AND IN LOWEST POSITION , ENDORSED TO ASIF RN FOR CONTINUATION OF CARE.
--- NOTE | 2022-03-01 07:02 | NUR ---
ENDORSED TO THERON OCAMPO FOR CONTINUATION OF CARE.
--- NOTE | 2022-03-01 07:51 | NUR ---
rn opening note pt is alert and oriented x4. pt on room air. no pain or discomfort at this time. all safety measures in place. call light within reach.bedside table within reach. bed locked at lowest position.side rails up x2.
[2022-03-01 08:00] VITALS: BP 104/73
[2022-03-01] MEDS: HEPARIN SODIUM, PORCINE 5000 UNITS/1 ML VIAL SQ SCH (08:45)
[2022-03-01 11:38] LABS: BASOPHILS % (AUTO) 0.3 % (0.0-2.0); EOSINOPHILS % (AUTO) 1.2 % (0.0-6.0); HEMATOCRIT 35 % (39-51); HEMOGLOBIN 12.1 g/dL (13.5-17.5); LYMPHOCYTES # (AUTO) 0.9 K/uL (0.8-4.8); LYMPHOCYTES % (AUTO) 27.6 % (20.0-44.0); MEAN CORPUSCULAR HGB CONC 35 g/dl (31.0-36.0); MEAN CORPUSCULAR VOLUME 101 fL (80-96); MONOCYTES # (AUTO) 0.3 K/uL (0.1-1.30); NEUTROPHILS # (AUTO) 2.1 K/uL (1.8-8.9); NEUTROPHILS % (AUTO) 62.9 % (43.0-81.0); PLATELET COUNT (AUTO) 61 K/uL (150-450); RED BLOOD CELL COUNT(AUTO) 3.43 MIL/uL (4.5-6.0); WHITE BLOOD COUNT (AUTO) 3.3 K/uL (4.3-11.0)
[2022-03-01 11:40] LABS: ALBUMIN 3.2 g/dL (3.4-5.0); BILIRUBIN,TOTAL 0.6 mg/dL (0.2-1.0); CALCIUM, SERUM 8.6 mg/dL (8.5-10.1); CREATININE 0.7 mg/dL (0.6-1.3); MAGNESIUM 1.7 mg/dL (1.8-2.4); PHOSPHORUS 2.4 mg/dL (2.5-4.9); TOTAL PROTEIN, SERUM 6.9 g/dL (6.4-8.2)
[2022-03-01] MEDS ORDERED: NEUTRA PHOS 1 POWD.PACKET PO ONE (15:00)
--- NOTE | 2022-03-01 15:21 | NUR ---
blast furnace checker note pt stable condition.pt discharged. removed iv.sent home with his belongings. went over discharge instructions.pt verbalized understanding. ambulance picked up patient
[2022-03-01 17:11] LABS: BAND % (MANUAL) 2 % (0.0-5.0); EOSINOPHILS % (MANUAL) 1 % (0-4); LYMPHOCYTES % (MANUAL) 30 % (16-48); MONOCYTES % (MANUAL) 4 % (0-11.0); NEUTROPHILS % (MANUAL) 63 (42-76)
== END 2022-03-01 15:39 | disposition home health service (06) | DRG 422 ==
LOC: ER 09:14 → TRANSITION 18:00 → TELE1 02-27 08:55 → TELE-TD 02-27 09:35 → TELE1 02-28 09:45 → MEDSG1 02-28 13:35
PROVIDERS: ADMIT Internal Medicine
DX: E87.20 Acidosis, unspecified (principal); E86.0 Dehydration; E11.9 Type 2 diabetes mellitus without complications; M06.9 Rheumatoid arthritis, unspecified; M79.7 Fibromyalgia; Z86.73 Personal history of transient ischemic attack (TIA), and cerebral infarction without residual deficits; Z88.2 Allergy status to sulfonamides; E80.6 Other disorders of bilirubin metabolism; M48.07 Spinal stenosis, lumbosacral region; Z20.822 Contact with and (suspected) exposure to COVID-19; S30.810A Abrasion of lower back and pelvis, initial encounter; X58.XXXA Exposure to other specified factors, initial encounter; Y93.9 Activity, unspecified; Y92.009 Unspecified place in unspecified non-institutional (private) residence as the place of occurrence of the external cause; Z79.620 Long term (current) use of immunosuppressive biologic
CPT/HCPCS: 36415; 71250-TC; 72131-TC; 80048-TC; 80053-TC; 80076-TC; 80202-TC; 81001; 82010-TC; 82550-TC; 82803-TC; 83605-TC; 83735-TC; 84100-TC; 85025-TC; 85730-TC; 87040-TC; 87081-TC; 97110-TC; 97116-TC; 97530-TC; 97535-TC; A6253; C9803; G0378; J0692; J0696; J1644; J2270; J2405; J3370; J3475; J7030; J7050; J7060; J7120

== ENCOUNTER 2022-11-24 20:46 | Inpatient (IN) | payer OTHER ==
[~2022-11-24] VITALS: Ht 190.5 cm; Wt 80.3 kg
[~2022-11-24 20:46] MED LIST changes: -ACET-2605 PO; +ACET-73 PO; +ADAL40PE5 SQ; -BUSP5TAB3 PO; +CALC500T52 PO; +CELE-85 PO; +ENOX40DI9 SQ; +FERR325T24 PO; -GLUC100017 PO; +HYDR-3973 PO; +LEVO50TA8 PO; -ONDA-97 PO; -TURM500C9 PO
[2022-11-24] MEDS ORDERED: IV NS 0.9% 1,000 ML BAG IV ONE (22:30)
[2022-11-24] MEDS ORDERED: ONDANSETRON HCL/PF 4 MG/2 ML VIAL IVP ONE (22:30)
[2022-11-24 22:55] LABS: BASOPHILS # (AUTO) 0.1 K/uL (0.0-0.2); BASOPHILS % (AUTO) 1.9 % (0.0-2.0); EOSINOPHILS % (AUTO) 0.5 % (0.0-6.0); HEMATOCRIT 30 % (39-51); HEMOGLOBIN 10.1 g/dL (13.5-17.5); LYMPHOCYTES # (AUTO) 0.4 K/uL (0.8-4.8); LYMPHOCYTES % (AUTO) 6.2 % (20.0-44.0); MEAN CORPUSCULAR HEMOGLOBIN 35 PG (26.0-33.0); MEAN CORPUSCULAR HGB CONC 34 g/dl (31.0-36.0); MEAN CORPUSCULAR VOLUME 106 fL (80-96); MONOCYTES # (AUTO) 0.4 K/uL (0.1-1.30); MONOCYTES % (AUTO) 5.3 % (2.0-12.0); NEUTROPHILS % (AUTO) 86.1 % (43.0-81.0); PLATELET COUNT (AUTO) 122 K/uL (150-450); RED BLOOD CELL COUNT(AUTO) 2.86 MIL/uL (4.5-6.0); RED CELL DISTRIBUTION WIDTH 16.8 % (11.5-15.0)
[2022-11-24 23:09] LABS: CALCIUM, SERUM 7.5 mg/dL (8.5-10.1); CARBON DIOXIDE 19 mmol/L (21-32); CHLORIDE 97 mmol/L (98-107); CREATININE 0.6 mg/dL (0.6-1.3); GLUCOSE 109 mg/dL (74-106); POTASSIUM 4.4 mmol/L (3.5-5.1); SODIUM SERUM 131 mmol/L (136-145); UREA NITROGEN, BLOOD 5 mg/dL (7-18)
[2022-11-24 23:16] LABS: ALANINE AMINOTRANSFERASE 28 U/L (12-78); ALBUMIN 2.5 g/dL (3.4-5.0); ALKALINE PHOSPHATASE 240 U/L (46-116); ASPARTATE AMINOTRANSFERASE 115 U/L (15-37); BILIRUBIN,DIRECT 2.4 mg/dL (0.0-0.2); BILIRUBIN,TOTAL 3.8 mg/dL (0.2-1.0)
[2022-11-24] MEDS ORDERED: ONDANSETRON HCL/PF 4 MG/2 ML VIAL ONE (23:17)
[2022-11-25] MEDS ORDERED: Z GUARD REMEDY 4 OZ OINT TP PRN
[2022-11-25] MEDS ORDERED: ACETAMINOPHEN 325 MG TABLET PO PRN
[2022-11-25] MEDS ORDERED: MAGNESIUM HYDROXIDE 30 ML UDC PO PRN
[2022-11-25] MEDS ORDERED: ONDANSETRON HCL/PF 4 MG/2 ML VIAL IVP PRN
[2022-11-25] MEDS ORDERED: MAG HYDROX/AL HYDROX/SIMETH 30 ML UDC PO PRN
[2022-11-25 00:07] LABS: APPEARANCE,URINE SLIGHTLY CLOUDY (CLEAR); COLOR,URINE DARK YELLOW (YELLOW); LEUKOCYTE ESTERASE ,URINE TRACE (NEGATIVE); NITRITE, URINE POSITIVE (NEGATIVE)
[2022-11-25 00:08] LABS: BILIRUBIN,URINE NEGATIVE (NEGATIVE); BLOOD, URINE 1+ Ery/uL (NEGATIVE); PROTEIN,URINE TRACE mg/dl (NEGATIVE); UGLUCOSE NEGATIVE (NEGATIVE); UROBILINOGEN,URINE 0.2 EU/dL (0.2)
[2022-11-25 00:09] LABS: KETONES,URINE NEGATIVE (NEGATIVE)
[2022-11-25 00:10] LABS: ADD URINE CULTURE YES; BACTERIA,URINE Moderate /HPF (None Seen); SQUAMOUS EPITHELIAL CELL,UR Rare /HPF (None Seen)
[2022-11-25 01:00] VITALS: BP 102/73; TEMP 97.7; O2SAT 96
[2022-11-25] MEDS ORDERED: PIPERACI/TAZO 3.375GM/D5W 50ML PB IV ONE (02:18)
[2022-11-25] MEDS: ZOSYN IVPB 3.375 G in IV D5W 50ml IV SCH ×2 (02:28→08:50)
[2022-11-25] MEDS: IV NS 0.9% 1,000 ML IV PRN ×2 (02:29→18:43)
[2022-11-25] MEDS ORDERED: KETOROLAC TROMETHAMINE 10 MG TABLET PO PRN (02:30)
[2022-11-25] MEDS: MORPHINE SULFATE INJ 2 MG/ML DISP.SYRIN IV PRN ×5 (03:19→22:05)
[2022-11-25 07:25] LABS: BASOPHILS # (AUTO) 0.1 K/uL (0.0-0.2); EOSINOPHILS % (AUTO) 0.4 % (0.0-6.0); HEMATOCRIT 28 % (39-51); HEMOGLOBIN 9.2 g/dL (13.5-17.5); LYMPHOCYTES # (AUTO) 1.2 K/uL (0.8-4.8); LYMPHOCYTES % (AUTO) 18.6 % (20.0-44.0); MEAN CORPUSCULAR HEMOGLOBIN 36 PG (26.0-33.0); MEAN CORPUSCULAR HGB CONC 33 g/dl (31.0-36.0); MEAN CORPUSCULAR VOLUME 109 fL (80-96); MONOCYTES # (AUTO) 0.4 K/uL (0.1-1.30); MONOCYTES % (AUTO) 5.7 % (2.0-12.0); NEUTROPHILS # (AUTO) 4.9 K/uL (1.8-8.9); NEUTROPHILS % (AUTO) 74.3 % (43.0-81.0); PLATELET COUNT (AUTO) 119 K/uL (150-450); RED BLOOD CELL COUNT(AUTO) 2.55 MIL/uL (4.5-6.0); RED CELL DISTRIBUTION WIDTH 16.6 % (11.5-15.0); WHITE BLOOD COUNT (AUTO) 6.6 K/uL (4.3-11.0)
[2022-11-25 07:34] LABS: ALBUMIN 2.2 g/dL (3.4-5.0); BILIRUBIN,TOTAL 3.4 mg/dL (0.2-1.0); CALCIUM, SERUM 7.3 mg/dL (8.5-10.1); CREATININE 0.5 mg/dL (0.6-1.3); MAGNESIUM 1.6 mg/dL (1.8-2.4); PHOSPHORUS 4.3 mg/dL (2.5-4.9); POTASSIUM 4.2 mmol/L (3.5-5.1); TOTAL PROTEIN, SERUM 5.5 g/dL (6.4-8.2)
[2022-11-25] MEDS ORDERED: FOLI0.8C PO (07:39)
[2022-11-25] MEDS ORDERED: HYDR-3980 PO (07:39)
[2022-11-25 08:00] VITALS: BP 99/69; TEMP 98.2; O2SAT 97
[2022-11-25] MEDS: PANTOPRAZOLE 40 MG VIAL IV SCH (09:23)
[2022-11-25] MEDS ORDERED: Magnesium 1GM/D5W 100ML PREMIX PIGGYBACK IV ONE (11:00)
[2022-11-25] MEDS ORDERED: PIPERACILLIN /TAZOBACTAM 3.375 G in IV D5W 50 ML IV SCH (12:00)
[2022-11-25] MEDS ORDERED: MGSO4/D5W 100 ML IV SCH (12:00)
[2022-11-25] MEDS: ALPRAZOLAM 0.25 MG TABLET PO PRN (12:25)
[2022-11-25] MEDS: FOLIC ACID 1 MG TABLET PO SCH (15:04)
[2022-11-25] MEDS: LEVOTHYROXINE SODIUM 50 MCG TABLET PO SCH (15:04)
[2022-11-25 16:00] VITALS: BP 103/73; TEMP 98.2; O2SAT 99
[2022-11-25 17:00] LABS: AMPHETAMINE, URINE NEGATIVE (NEGATIVE); BARBITURATE, URINE NEGATIVE (NEGATIVE); BENZODIAZEPINE, URINE NEGATIVE (NEGATIVE); CANNABINOID, URINE NEGATIVE (NEGATIVE); COCCAINE, URINE NEGATIVE (NEGATIVE); PHENCYCLIDINE SCREEN,URINE NEGATIVE (NEGATIVE)
[2022-11-25 17:01] LABS: OPIATE, URINE POSITIVE (NEGATIVE)
[2022-11-25] MEDS: ENSURE ENLIVE CHOC 237 ML CAN PO SCH (17:17)
[2022-11-25] MEDS: VANCOMYCIN HCL 125 MG/2.5 ML ORAL.SUSP PO SCH ×2 (18:06→23:16)
[2022-11-25] MEDS: METRONIDAZOLE 500MG/ NS 100ML 500 MG in PREMIX 1 EA IV SCH (18:06)
[2022-11-25 20:00] VITALS: BP 114/74; TEMP 97.8; O2SAT 98
[2022-11-25] MEDS: DOXYCYCLINE HYCLATE (100 MG) 100 MG TABLET PO SCH (20:53)
[2022-11-26] MEDS: METRONIDAZOLE 500MG/ NS 100ML 500 MG in PREMIX 1 EA IV SCH ×3 (02:38→18:34)
[2022-11-26] MEDS: MORPHINE SULFATE INJ 2 MG/ML DISP.SYRIN IV PRN ×4 (04:27→18:58)
[2022-11-26] MEDS: VANCOMYCIN HCL 125 MG/2.5 ML ORAL.SUSP PO SCH ×3 (05:33→18:35)
[2022-11-26 05:51] VITALS: BP 114/73; TEMP 97.8; O2SAT 99
[2022-11-26 06:16] LABS: BASOPHILS % (AUTO) 0.8 % (0.0-2.0); EOSINOPHILS % (AUTO) 0.9 % (0.0-6.0); HEMATOCRIT 28 % (39-51); LYMPHOCYTES % (AUTO) 21.6 % (20.0-44.0); MEAN CORPUSCULAR HEMOGLOBIN 33 PG (26.0-33.0); MEAN CORPUSCULAR HGB CONC 32 g/dl (31.0-36.0); MEAN CORPUSCULAR VOLUME 101 fL (80-96); MONOCYTES # (AUTO) 0.3 K/uL (0.1-1.30); MONOCYTES % (AUTO) 7.6 % (2.0-12.0); NEUTROPHILS # (AUTO) 3.1 K/uL (1.8-8.9); NEUTROPHILS % (AUTO) 69.1 % (43.0-81.0); PLATELET COUNT (AUTO) 83 K/uL (150-450); RED BLOOD CELL COUNT(AUTO) 2.76 MIL/uL (4.5-6.0); RED CELL DISTRIBUTION WIDTH 16.8 % (11.5-15.0); WHITE BLOOD COUNT (AUTO) 4.5 K/uL (4.3-11.0)
[2022-11-26 06:52] LABS: CALCIUM, SERUM 7.6 mg/dL (8.5-10.1); CREATININE 0.6 mg/dL (0.6-1.3); MAGNESIUM 1.4 mg/dL (1.8-2.4); PHOSPHORUS 3.1 mg/dL (2.5-4.9)
[2022-11-26] MEDS: IV NS 0.9% 1,000 ML IV PRN ×2 (06:55→23:47)
[2022-11-26 07:30] VITALS: BP 106/68; TEMP 98.5; O2SAT 100
[2022-11-26] MEDS: LEVOTHYROXINE SODIUM 50 MCG TABLET PO SCH (07:40)
[2022-11-26] MEDS: ENSURE ENLIVE CHOC 237 ML CAN PO SCH ×2 (08:00→17:00)
[2022-11-26 08:04] LABS: THYROID STIMULATING HORMONE 6.095 uIU/mL (0.358-3.74); URIC ACID 3.3 mg/dL (2.6-7.2)
[2022-11-26 09:03] LABS: BASOPHILS % (MANUAL) 0 % (0.0-2.0); EOSINOPHILS % (MANUAL) 0 % (0-4); HYPOCHROMASIA 1+; LYMPHOCYTES % (MANUAL) 22 % (16-48); MONOCYTES % (MANUAL) 7 % (0-11.0); NEUTROPHILS % (MANUAL) 71 (42-76); PLATELET ESTIMATE DECREASED
[2022-11-26 09:04] LABS: ANISOCYTOSIS 1+
[2022-11-26] MEDS: DOXYCYCLINE HYCLATE (100 MG) 100 MG TABLET PO SCH ×2 (09:27→20:54)
[2022-11-26] MEDS: FOLIC ACID 1 MG TABLET PO SCH (09:28)
[2022-11-26] MEDS: CELECOXIB 100 MG CAPSULE PO SCH (09:28)
[2022-11-26] MEDS: PANTOPRAZOLE 40 MG VIAL IV SCH (09:52)
[2022-11-26] MEDS: Magnesium 1GM/D5W 100ML PREMIX 100 ML IV SCH ×2 (11:59→13:46)
[2022-11-26] MEDS: ALPRAZOLAM 0.25 MG TABLET PO PRN ×2 (12:06→20:54)
[2022-11-26 16:00] VITALS: BP 101/68; TEMP 98.1; O2SAT 96
[2022-11-26 20:00] VITALS: BP 99/71; TEMP 97.5; O2SAT 97
[2022-11-27] MEDS: VANCOMYCIN HCL 125 MG/2.5 ML ORAL.SUSP PO SCH ×4 (00:35→17:48)
[2022-11-27] MEDS: MORPHINE SULFATE INJ 2 MG/ML DISP.SYRIN IV PRN ×3 (01:00→18:21)
[2022-11-27] MEDS: METRONIDAZOLE 500MG/ NS 100ML 500 MG in PREMIX 1 EA IV SCH (02:34)
[2022-11-27 06:45] LABS: BASOPHILS % (AUTO) 0.7 % (0.0-2.0); EOSINOPHILS # (AUTO) 0.1 K/uL (0.0-0.7); EOSINOPHILS % (AUTO) 2.2 % (0.0-6.0); HEMATOCRIT 25 % (39-51); HEMOGLOBIN 8.2 g/dL (13.5-17.5); LYMPHOCYTES # (AUTO) 0.9 K/uL (0.8-4.8); LYMPHOCYTES % (AUTO) 31.4 % (20.0-44.0); MEAN CORPUSCULAR HEMOGLOBIN 37 PG (26.0-33.0); MEAN CORPUSCULAR HGB CONC 33 g/dl (31.0-36.0); MEAN CORPUSCULAR VOLUME 110 fL (80-96); MONOCYTES # (AUTO) 0.2 K/uL (0.1-1.30); NEUTROPHILS # (AUTO) 1.7 K/uL (1.8-8.9); NEUTROPHILS % (AUTO) 57.7 % (43.0-81.0); PLATELET COUNT (AUTO) 71 K/uL (150-450); RED BLOOD CELL COUNT(AUTO) 2.25 MIL/uL (4.5-6.0); RED CELL DISTRIBUTION WIDTH 16.4 % (11.5-15.0)
[2022-11-27 06:54] LABS: CALCIUM, SERUM 7.7 mg/dL (8.5-10.1); CREATININE 0.5 mg/dL (0.6-1.3); MAGNESIUM 1.6 mg/dL (1.8-2.4); POTASSIUM 3.8 mmol/L (3.5-5.1)
[2022-11-27 07:00] VITALS: BP 100/70; TEMP 98; O2SAT 99
[2022-11-27] MEDS: LEVOTHYROXINE SODIUM 50 MCG TABLET PO SCH (07:42)
[2022-11-27] MEDS: ENSURE ENLIVE CHOC 237 ML CAN PO SCH ×2 (08:00→17:00)
[2022-11-27] MEDS: DOXYCYCLINE HYCLATE (100 MG) 100 MG TABLET PO SCH ×2 (09:03→21:06)
[2022-11-27] MEDS: FOLIC ACID 1 MG TABLET PO SCH (09:03)
[2022-11-27] MEDS: Magnesium 1GM/D5W 100ML PREMIX 100 ML IV SCH ×2 (09:03→10:14)
[2022-11-27] MEDS: PANTOPRAZOLE 40 MG/PACK PACK PO SCH (09:03)
[2022-11-27] MEDS: CELECOXIB 100 MG CAPSULE PO SCH (09:03)
[2022-11-27 09:45] LABS: ANISOCYTOSIS 1+; BASOPHILS % (MANUAL) 0 % (0.0-2.0); EOSINOPHILS % (MANUAL) 3 % (0-4); LYMPHOCYTES % (MANUAL) 29 % (16-48); MONOCYTES % (MANUAL) 7 % (0-11.0); NEUTROPHILS % (MANUAL) 61 (42-76); PLATELET ESTIMATE DECREASED
[2022-11-27] MEDS: METRONIDAZOLE 500 MG TABLET PO SCH ×2 (12:35→21:06)
[2022-11-27 16:00] VITALS: BP 98/73; TEMP 98; O2SAT 99
[2022-11-27] MEDS: IV NS 0.9% 1,000 ML IV PRN (16:18)
[2022-11-27 20:00] VITALS: BP 95/70; TEMP 98.1; O2SAT 94
[2022-11-27] MEDS: ALPRAZOLAM 0.25 MG TABLET PO PRN (21:12)
[2022-11-28] MEDS: MORPHINE SULFATE INJ 2 MG/ML DISP.SYRIN IV PRN ×3 (00:32→17:34)
[2022-11-28] MEDS: VANCOMYCIN HCL 125 MG/2.5 ML ORAL.SUSP PO SCH ×4 (00:32→17:22)
[2022-11-28] MEDS: METRONIDAZOLE 500 MG TABLET PO SCH ×3 (05:26→20:49)
[2022-11-28] MEDS: IV NS 0.9% 1,000 ML IV PRN ×2 (05:40→18:54)
[2022-11-28 06:32] LABS: BASOPHILS % (AUTO) 0.9 % (0.0-2.0); EOSINOPHILS # (AUTO) 0.1 K/uL (0.0-0.7); EOSINOPHILS % (AUTO) 1.7 % (0.0-6.0); HEMATOCRIT 27 % (39-51); HEMOGLOBIN 8.6 g/dL (13.5-17.5); LYMPHOCYTES # (AUTO) 1.3 K/uL (0.8-4.8); LYMPHOCYTES % (AUTO) 35.3 % (20.0-44.0); MEAN CORPUSCULAR HEMOGLOBIN 34 PG (26.0-33.0); MEAN CORPUSCULAR HGB CONC 32 g/dl (31.0-36.0); MEAN CORPUSCULAR VOLUME 106 fL (80-96); MONOCYTES # (AUTO) 0.3 K/uL (0.1-1.30); MONOCYTES % (AUTO) 8.4 % (2.0-12.0); NEUTROPHILS % (AUTO) 53.7 % (43.0-81.0); PLATELET COUNT (AUTO) 76 K/uL (150-450); RED BLOOD CELL COUNT(AUTO) 2.53 MIL/uL (4.5-6.0); RED CELL DISTRIBUTION WIDTH 16.2 % (11.5-15.0); WHITE BLOOD COUNT (AUTO) 3.7 K/uL (4.3-11.0)
[2022-11-28 06:40] LABS: CALCIUM, SERUM 7.7 mg/dL (8.5-10.1); CREATININE 0.5 mg/dL (0.6-1.3); MAGNESIUM 1.9 mg/dL (1.8-2.4); POTASSIUM 3.8 mmol/L (3.5-5.1)
[2022-11-28 08:00] VITALS: BP 102/74; TEMP 98.2; O2SAT 94
[2022-11-28] MEDS: DOXYCYCLINE HYCLATE (100 MG) 100 MG TABLET PO SCH ×2 (08:13→20:49)
[2022-11-28] MEDS: LEVOTHYROXINE SODIUM 75 MCG TABLET PO SCH (08:15)
[2022-11-28] MEDS: ENSURE ENLIVE CHOC 237 ML CAN PO SCH ×2 (08:15→17:22)
[2022-11-28] MEDS: CELECOXIB 100 MG CAPSULE PO SCH (08:16)
[2022-11-28] MEDS: FOLIC ACID 1 MG TABLET PO SCH (08:17)
[2022-11-28] MEDS: PANTOPRAZOLE 40 MG/PACK PACK PO SCH (08:17)
[2022-11-28 12:52] LABS: ANISOCYTOSIS 1+; BASOPHILS % (MANUAL) 0 % (0.0-2.0); EOSINOPHILS % (MANUAL) 4 % (0-4); HYPOCHROMASIA 1+; LYMPHOCYTES % (MANUAL) 28 % (16-48); MONOCYTES % (MANUAL) 9 % (0-11.0); NEUTROPHILS % (MANUAL) 59 (42-76); PLATELET ESTIMATE DECREASED
[2022-11-28 16:00] VITALS: BP 96/69; TEMP 98.6; O2SAT 92
[2022-11-28] MEDS: CLOTRIMAZOLE 1% 15 GM TUBE TP SCH (17:22)
[2022-11-28 20:30] VITALS: BP 105/77; TEMP 97.7; O2SAT 19
[2022-11-29] MEDS: VANCOMYCIN HCL 125 MG/2.5 ML ORAL.SUSP PO SCH ×3 (00:12→12:14)
[2022-11-29] MEDS: MORPHINE SULFATE INJ 2 MG/ML DISP.SYRIN IV PRN ×2 (00:12→07:50)
[2022-11-29] MEDS: METRONIDAZOLE 500 MG TABLET PO SCH ×2 (05:01→12:14)
[2022-11-29 06:19] LABS: BASOPHILS % (AUTO) 1.1 % (0.0-2.0); EOSINOPHILS # (AUTO) 0.1 K/uL (0.0-0.7); EOSINOPHILS % (AUTO) 2.4 % (0.0-6.0); HEMATOCRIT 24 % (39-51); LYMPHOCYTES # (AUTO) 1.2 K/uL (0.8-4.8); LYMPHOCYTES % (AUTO) 35.8 % (20.0-44.0); MEAN CORPUSCULAR HEMOGLOBIN 35 PG (26.0-33.0); MEAN CORPUSCULAR HGB CONC 33 g/dl (31.0-36.0); MEAN CORPUSCULAR VOLUME 105 fL (80-96); MONOCYTES # (AUTO) 0.4 K/uL (0.1-1.30); NEUTROPHILS # (AUTO) 1.7 K/uL (1.8-8.9); NEUTROPHILS % (AUTO) 49.7 % (43.0-81.0); PLATELET COUNT (AUTO) 82 K/uL (150-450); RED BLOOD CELL COUNT(AUTO) 2.31 MIL/uL (4.5-6.0); RED CELL DISTRIBUTION WIDTH 16.5 % (11.5-15.0); WHITE BLOOD COUNT (AUTO) 3.5 K/uL (4.3-11.0)
[2022-11-29 06:29] LABS: CREATININE 0.5 mg/dL (0.6-1.3)
[2022-11-29 07:30] VITALS: BP 108/80; TEMP 98.2; O2SAT 99
[2022-11-29] MEDS: LEVOTHYROXINE SODIUM 75 MCG TABLET PO SCH (07:50)
[2022-11-29] MEDS: ENSURE ENLIVE CHOC 237 ML CAN PO SCH (08:03)
[2022-11-29] MEDS: CELECOXIB 100 MG CAPSULE PO SCH (08:19)
[2022-11-29] MEDS: FOLIC ACID 1 MG TABLET PO SCH (08:19)
[2022-11-29] MEDS: DOXYCYCLINE HYCLATE (100 MG) 100 MG TABLET PO SCH (08:19)
[2022-11-29] MEDS: PANTOPRAZOLE 40 MG/PACK PACK PO SCH (08:19)
[2022-11-29] MEDS: CLOTRIMAZOLE 1% 15 GM TUBE TP SCH (08:26)
[2022-11-29] MEDS: IV NS 0.9% 1,000 ML IV PRN (09:06)
[2022-11-29 11:08] LABS: ANISOCYTOSIS 1+; BASOPHILS % (MANUAL) 0 % (0.0-2.0); EOSINOPHILS % (MANUAL) 4 % (0-4); HYPOCHROMASIA 1+; LYMPHOCYTES % (MANUAL) 31 % (16-48); MONOCYTES % (MANUAL) 9 % (0-11.0); NEUTROPHILS % (MANUAL) 56 (42-76); PLATELET ESTIMATE DECREASED
[2022-11-29] MEDS ORDERED: VANC125C11 PO (17:38)
== END 2022-11-29 16:55 | disposition home health service (06) | DRG 248 ==
LOC: ER 20:52 → MED 11-25 00:21
PROVIDERS: ATTEND Nurse Practitioner Acute Care
DX: A04.72 Enterocolitis due to Clostridium difficile, not specified as recurrent (principal); D69.6 Thrombocytopenia, unspecified; E44.0 Moderate protein-calorie malnutrition; E83.51 Hypocalcemia; E87.1 Hypo-osmolality and hyponatremia; E88.09 Other disorders of plasma-protein metabolism, not elsewhere classified; K74.60 Unspecified cirrhosis of liver; R62.7 Adult failure to thrive; E83.42 Hypomagnesemia; D53.9 Nutritional anemia, unspecified; N39.0 Urinary tract infection, site not specified; E03.9 Hypothyroidism, unspecified; E11.9 Type 2 diabetes mellitus without complications; E86.1 Hypovolemia; G89.21 Chronic pain due to trauma; M06.9 Rheumatoid arthritis, unspecified; R63.1 Polydipsia; Z88.2 Allergy status to sulfonamides; E80.6 Other disorders of bilirubin metabolism; R60.9 Edema, unspecified; I69.354 Hemiplegia and hemiparesis following cerebral infarction affecting left non-dominant side; R53.1 Weakness; V89.2XXS Person injured in unspecified motor-vehicle accident, traffic, sequela; M48.56XA Collapsed vertebra, not elsewhere classified, lumbar region, initial encounter for fracture; M79.7 Fibromyalgia; Z91.81 History of falling; L03.116 Cellulitis of left lower limb; L03.115 Cellulitis of right lower limb; B96.5 Pseudomonas (aeruginosa) (mallei) (pseudomallei) as the cause of diseases classified elsewhere; Z87.891 Personal history of nicotine dependence; Z68.22 Body mass index [BMI] 22.0-22.9, adult
CPT/HCPCS: 36415; 70450-TC; 71045-TC; 80048-TC; 80053-TC; 80076-TC; 81001; 83735-TC; 83880; 84100-TC; 84300-TC; 84443-TC; 84484-TC; 84550-TC; 85025-TC; 87086-TC; 93970-TC; 97110-TC; 97530-TC; A4216; A4223; A6403; C9113; G0378; G0480; J2270; J2405; J2543; J3475; J7030; J7060

== ENCOUNTER 2022-12-07 10:21 | Inpatient (IN) | payer OTHER ==
[~2022-12-07] VITALS: Ht 190.5 cm; Wt 86.2 kg
[~2022-12-07 10:21] MED LIST changes: -ACET-73 PO; -CALC500T52 PO; -ENOX40DI9 SQ; -FERR325T24 PO; +FOLI0.8C PO; -HYDR-3973 PO; +HYDR-3980 PO; +VANC125C11 PO
[2022-12-07 11:37] LABS: BASOPHILS # (AUTO) 0.1 K/uL (0.0-0.2); BASOPHILS % (AUTO) 1.4 % (0.0-2.0); EOSINOPHILS % (AUTO) 0.4 % (0.0-6.0); HEMATOCRIT 37 % (39-51); HEMOGLOBIN 12.3 g/dL (13.5-17.5); LYMPHOCYTES # (AUTO) 1.2 K/uL (0.8-4.8); LYMPHOCYTES % (AUTO) 20.8 % (20.0-44.0); MEAN CORPUSCULAR HEMOGLOBIN 34 PG (26.0-33.0); MEAN CORPUSCULAR HGB CONC 33 g/dl (31.0-36.0); MEAN CORPUSCULAR VOLUME 103 fL (80-96); MONOCYTES # (AUTO) 0.3 K/uL (0.1-1.30); MONOCYTES % (AUTO) 5.3 % (2.0-12.0); NEUTROPHILS # (AUTO) 4.2 K/uL (1.8-8.9); NEUTROPHILS % (AUTO) 72.1 % (43.0-81.0); PLATELET COUNT (AUTO) 243 K/uL (150-450); RED BLOOD CELL COUNT(AUTO) 3.58 MIL/uL (4.5-6.0); RED CELL DISTRIBUTION WIDTH 17.9 % (11.5-15.0); WHITE BLOOD COUNT (AUTO) 5.8 K/uL (4.3-11.0)
[2022-12-07 11:50] LABS: ALANINE AMINOTRANSFERASE 30 U/L (12-78); ALBUMIN 2.5 g/dL (3.4-5.0); ALKALINE PHOSPHATASE 298 U/L (46-116); ASPARTATE AMINOTRANSFERASE 103 U/L (15-37); BILIRUBIN,DIRECT 0.7 mg/dL (0.0-0.2); BILIRUBIN,TOTAL 1.1 mg/dL (0.2-1.0); CALCIUM, SERUM 8.3 mg/dL (8.5-10.1); CARBON DIOXIDE 24 mmol/L (21-32); CREATININE 0.6 mg/dL (0.6-1.3); GLUCOSE 95 mg/dL (74-106); INR 1.17 (0.91-1.10); LIPASE 193 U/L (73-393); PARTIAL THROMBOPLASTIN TIME 26.8 SEC (24.3-34.3); PROTHROMBIN TIME 12.2 SECS (9.2-11.1); TOTAL PROTEIN, SERUM 6.9 g/dL (6.4-8.2); UREA NITROGEN, BLOOD 3 mg/dL (7-18)
[2022-12-07] MEDS ORDERED: IOHEXOL-350 100 ML VIAL IV ONE (12:15)
[2022-12-07] MEDS ORDERED: IV NS 0.9% 250 ML IV ONE (12:15)
[2022-12-07 12:17] LABS: CHLORIDE 99 mmol/L (98-107); POTASSIUM 4.5 mmol/L (3.5-5.1); SODIUM SERUM 135 mmol/L (136-145)
[2022-12-07] MEDS ORDERED: ONDANSETRON HCL/PF 4 MG/2 ML VIAL IVP PRN (12:30)
[2022-12-07] MEDS ORDERED: ACETAMINOPHEN 325 MG TABLET PO PRN (12:30)
[2022-12-07] MEDS ORDERED: MORPHINE SULFATE INJ 2 MG/ML DISP.SYRIN ONE (12:35)
[2022-12-07] MEDS: MORPHINE SULFATE INJ 2 MG/ML DISP.SYRIN IV PRN ×2 (13:00→20:37)
[2022-12-07 13:07] LABS: APPEARANCE,URINE CLEAR (CLEAR); BILIRUBIN,URINE 1+ (NEGATIVE); BLOOD, URINE TRACE-INTA Ery/uL (NEGATIVE); COLOR,URINE YELLOW (YELLOW); KETONES,URINE 1+ mg/dL (NEGATIVE); LEUKOCYTE ESTERASE ,URINE NEGATIVE (NEGATIVE); NITRITE, URINE POSITIVE (NEGATIVE); PROTEIN,URINE TRACE mg/dl (NEGATIVE); UGLUCOSE NEGATIVE (NEGATIVE); UROBILINOGEN,URINE 0.2 EU/dL (0.2)
[2022-12-07 13:12] LABS: LACTIC ACID 2.1 mmol/L (0.4-2.0)
[2022-12-07 13:13] LABS: ADD URINE CULTURE YES; BACTERIA,URINE Few /HPF (None Seen); SQUAMOUS EPITHELIAL CELL,UR Rare /HPF (None Seen)
[2022-12-07] MEDS ORDERED: CEFEPIME 1 GM in IV D5W 50 ML IV ONE (13:30)
[2022-12-07] MEDS ORDERED: VANCOMYCIN 1 GM in IV D5W 250 ML IV ONE (13:30)
[2022-12-07] MEDS: ALBUMIN 25% 25 GM in PREMIX 1 EA IV SCH (13:40)
[2022-12-07] MEDS ORDERED: CEFEPIME 1 GM VIAL ONE (13:56)
[2022-12-07] MEDS ORDERED: VANCOMYCIN 1 GM /D5W 250 ML PB IV ONE (14:19)
[2022-12-07 16:00] VITALS: BP 98/53; TEMP 97.8; O2SAT 98
[2022-12-07 20:00] VITALS: BP 97/55; TEMP 98.1; O2SAT 95
[2022-12-07] MEDS: CEFEPIME 2 GM in IV D5W 100 ML IV SCH (20:36)
[2022-12-08] MEDS ORDERED: ALBUMIN 25% 100 ML IV ONE (01:19)
[2022-12-08] MEDS: ALBUMIN 25% 25 GM in PREMIX 1 EA IV SCH (01:46)
[2022-12-08] MEDS: MORPHINE SULFATE INJ 2 MG/ML DISP.SYRIN IV PRN ×5 (02:45→22:01)
[2022-12-08 06:51] LABS: BASOPHILS # (AUTO) 0.1 K/uL (0.0-0.2); BASOPHILS % (AUTO) 1.5 % (0.0-2.0); EOSINOPHILS # (AUTO) 0.1 K/uL (0.0-0.7); EOSINOPHILS % (AUTO) 1.2 % (0.0-6.0); HEMATOCRIT 29 % (39-51); HEMOGLOBIN 9.7 g/dL (13.5-17.5); LYMPHOCYTES # (AUTO) 1.1 K/uL (0.8-4.8); LYMPHOCYTES % (AUTO) 25.7 % (20.0-44.0); MEAN CORPUSCULAR HEMOGLOBIN 36 PG (26.0-33.0); MEAN CORPUSCULAR HGB CONC 33 g/dl (31.0-36.0); MEAN CORPUSCULAR VOLUME 108 fL (80-96); MONOCYTES # (AUTO) 0.4 K/uL (0.1-1.30); MONOCYTES % (AUTO) 7.9 % (2.0-12.0); NEUTROPHILS # (AUTO) 2.8 K/uL (1.8-8.9); NEUTROPHILS % (AUTO) 63.7 % (43.0-81.0); PLATELET COUNT (AUTO) 160 K/uL (150-450); RED BLOOD CELL COUNT(AUTO) 2.72 MIL/uL (4.5-6.0); RED CELL DISTRIBUTION WIDTH 17.9 % (11.5-15.0); WHITE BLOOD COUNT (AUTO) 4.4 K/uL (4.3-11.0)
[2022-12-08 07:20] LABS: ALBUMIN 2.2 g/dL (3.4-5.0); BILIRUBIN,TOTAL 1.5 mg/dL (0.2-1.0); TOTAL PROTEIN, SERUM 5.3 g/dL (6.4-8.2)
[2022-12-08 07:30] VITALS: BP 108/72; TEMP 98.4; O2SAT 94
[2022-12-08] MEDS: LEVOTHYROXINE SODIUM 50 MCG TABLET PO SCH (07:40)
[2022-12-08 08:15] LABS: POTASSIUM 3.8 mmol/L (3.5-5.1)
[2022-12-08 08:39] LABS: CALCIUM, SERUM 7.8 mg/dL (8.5-10.1); CREATININE 0.5 mg/dL (0.6-1.3); MAGNESIUM 1.5 mg/dL (1.8-2.4); PHOSPHORUS 2.8 mg/dL (2.5-4.9)
[2022-12-08] MEDS: CEFEPIME 2 GM in IV D5W 100 ML IV SCH ×2 (08:44→21:47)
[2022-12-08] MEDS: FOLIC ACID 1 MG TABLET PO SCH (08:45)
[2022-12-08] MEDS ORDERED: MIDODRINE HCL (5MG) 5 MG TABLET PO PRN (09:00)
[2022-12-08] MEDS ORDERED: MAGNESIUM OXIDE 400 MG TABLET PO ONE (10:00)
[2022-12-08] MEDS: Z GUARD REMEDY 4 OZ OINT TP PRN (11:08)
[2022-12-08] MEDS: Z GUARD REMEDY 4 OZ OINT TP SCH (11:09)
[2022-12-08 20:00] VITALS: BP 113/83; TEMP 97.7; O2SAT 96
[2022-12-09] MEDS: MORPHINE SULFATE INJ 2 MG/ML DISP.SYRIN IV PRN ×5 (03:00→20:25)
[2022-12-09 06:54] LABS: BASOPHILS % (AUTO) 0.8 % (0.0-2.0); EOSINOPHILS # (AUTO) 0.1 K/uL (0.0-0.7); EOSINOPHILS % (AUTO) 2.4 % (0.0-6.0); HEMATOCRIT 29 % (39-51); HEMOGLOBIN 9.7 g/dL (13.5-17.5); LYMPHOCYTES % (AUTO) 28.4 % (20.0-44.0); MEAN CORPUSCULAR HEMOGLOBIN 35 PG (26.0-33.0); MEAN CORPUSCULAR HGB CONC 33 g/dl (31.0-36.0); MEAN CORPUSCULAR VOLUME 106 fL (80-96); MONOCYTES # (AUTO) 0.3 K/uL (0.1-1.30); NEUTROPHILS # (AUTO) 2.2 K/uL (1.8-8.9); NEUTROPHILS % (AUTO) 60.4 % (43.0-81.0); PLATELET COUNT (AUTO) 141 K/uL (150-450); RED BLOOD CELL COUNT(AUTO) 2.75 MIL/uL (4.5-6.0); RED CELL DISTRIBUTION WIDTH 18.4 % (11.5-15.0); WHITE BLOOD COUNT (AUTO) 3.6 K/uL (4.3-11.0)
[2022-12-09 07:10] LABS: BILIRUBIN,TOTAL 1.2 mg/dL (0.2-1.0); CALCIUM, SERUM 7.7 mg/dL (8.5-10.1); CREATININE 0.4 mg/dL (0.6-1.3); POTASSIUM 3.4 mmol/L (3.5-5.1); TOTAL PROTEIN, SERUM 5.2 g/dL (6.4-8.2)
[2022-12-09] MEDS: LEVOTHYROXINE SODIUM 50 MCG TABLET PO SCH (07:49)
[2022-12-09 08:00] VITALS: BP 160/84; TEMP 98.6; O2SAT 95
[2022-12-09] MEDS: CEFEPIME 2 GM in IV D5W 100 ML IV SCH ×2 (08:11→20:24)
[2022-12-09] MEDS: FOLIC ACID 1 MG TABLET PO SCH (08:11)
[2022-12-09] MEDS: Z GUARD REMEDY 4 OZ OINT TP SCH (08:13)
[2022-12-09] MEDS ORDERED: POTASSIUM CHLORIDE 20 MEQ TAB.PRT.SR PO ONE (11:00)
[2022-12-09 16:00] VITALS: BP 113/89; TEMP 98.2; O2SAT 99
[2022-12-09 20:00] VITALS: BP 101/76; TEMP 97.9; O2SAT 98
[2022-12-10] MEDS: MORPHINE SULFATE INJ 2 MG/ML DISP.SYRIN IV PRN ×6 (00:28→21:08)
[2022-12-10 06:22] LABS: BASOPHILS % (AUTO) 0.9 % (0.0-2.0); EOSINOPHILS # (AUTO) 0.1 K/uL (0.0-0.7); HEMATOCRIT 30 % (39-51); HEMOGLOBIN 9.8 g/dL (13.5-17.5); LYMPHOCYTES % (AUTO) 29.8 % (20.0-44.0); MEAN CORPUSCULAR HEMOGLOBIN 35 PG (26.0-33.0); MEAN CORPUSCULAR HGB CONC 33 g/dl (31.0-36.0); MEAN CORPUSCULAR VOLUME 106 fL (80-96); MONOCYTES # (AUTO) 0.3 K/uL (0.1-1.30); MONOCYTES % (AUTO) 8.4 % (2.0-12.0); NEUTROPHILS # (AUTO) 2.1 K/uL (1.8-8.9); NEUTROPHILS % (AUTO) 58.9 % (43.0-81.0); PLATELET COUNT (AUTO) 146 K/uL (150-450); RED CELL DISTRIBUTION WIDTH 18.7 % (11.5-15.0); WHITE BLOOD COUNT (AUTO) 3.5 K/uL (4.3-11.0)
[2022-12-10 07:00] LABS: CALCIUM, SERUM 7.9 mg/dL (8.5-10.1); CREATININE 0.4 mg/dL (0.6-1.3); POTASSIUM 3.3 mmol/L (3.5-5.1); TOTAL PROTEIN, SERUM 5.2 g/dL (6.4-8.2)
[2022-12-10 08:00] VITALS: BP 107/73; TEMP 97.5; O2SAT 96
[2022-12-10] MEDS: LEVOTHYROXINE SODIUM 50 MCG TABLET PO SCH (08:28)
[2022-12-10] MEDS: FOLIC ACID 1 MG TABLET PO SCH (08:28)
[2022-12-10] MEDS: CEFEPIME 2 GM in IV D5W 100 ML IV SCH ×2 (08:29→21:08)
[2022-12-10] MEDS: Z GUARD REMEDY 4 OZ OINT TP SCH (08:45)
[2022-12-10] MEDS ORDERED: POTASSIUM CHLORIDE 20 MEQ TAB.PRT.SR PO ONE (10:00)
[2022-12-10 16:00] VITALS: BP 108/80; TEMP 97.9; O2SAT 98
[2022-12-10 20:00] VITALS: BP 104/79; TEMP 98.2; O2SAT 95
[2022-12-11] MEDS: MORPHINE SULFATE INJ 2 MG/ML DISP.SYRIN IV PRN ×6 (01:47→23:27)
[2022-12-11 07:40] LABS: CALCIUM, SERUM 7.6 mg/dL (8.5-10.1); CREATININE 0.4 mg/dL (0.6-1.3); POTASSIUM 3.6 mmol/L (3.5-5.1)
[2022-12-11] MEDS: LEVOTHYROXINE SODIUM 50 MCG TABLET PO SCH (07:45)
[2022-12-11 08:00] VITALS: BP 103/83; TEMP 98.4; O2SAT 96
[2022-12-11] MEDS: Z GUARD REMEDY 4 OZ OINT TP SCH (08:18)
[2022-12-11] MEDS: FOLIC ACID 1 MG TABLET PO SCH (08:18)
[2022-12-11] MEDS: CEFEPIME 2 GM in IV D5W 100 ML IV SCH ×2 (08:18→22:00)
[2022-12-11] MEDS ORDERED: ALBUMIN 25% 25 GM in PREMIX 1 EA IV PRN (08:30)
[2022-12-11 14:50] VITALS: BP 104/79; O2SAT 98
[2022-12-11 16:00] VITALS: BP 107/76; TEMP 97.3; O2SAT 97
[2022-12-11 20:00] VITALS: BP 109/77; TEMP 97.7; O2SAT 96
[2022-12-12] MEDS: MORPHINE SULFATE INJ 2 MG/ML DISP.SYRIN IV PRN ×5 (04:00→20:54)
[2022-12-12 07:00] VITALS: BP 109/86; TEMP 97.5; O2SAT 97
[2022-12-12 07:14] LABS: EOSINOPHILS # (AUTO) 0.1 K/uL (0.0-0.7); EOSINOPHILS % (AUTO) 1.9 % (0.0-6.0); HEMATOCRIT 31 % (39-51); HEMOGLOBIN 10.1 g/dL (13.5-17.5); LYMPHOCYTES # (AUTO) 1.2 K/uL (0.8-4.8); LYMPHOCYTES % (AUTO) 37.4 % (20.0-44.0); MEAN CORPUSCULAR HEMOGLOBIN 35 PG (26.0-33.0); MEAN CORPUSCULAR HGB CONC 33 g/dl (31.0-36.0); MEAN CORPUSCULAR VOLUME 106 fL (80-96); MONOCYTES # (AUTO) 0.4 K/uL (0.1-1.30); MONOCYTES % (AUTO) 12.7 % (2.0-12.0); NEUTROPHILS # (AUTO) 1.5 K/uL (1.8-8.9); PLATELET COUNT (AUTO) 147 K/uL (150-450); RED CELL DISTRIBUTION WIDTH 19.4 % (11.5-15.0); WHITE BLOOD COUNT (AUTO) 3.1 K/uL (4.3-11.0)
[2022-12-12] MEDS: LEVOTHYROXINE SODIUM 50 MCG TABLET PO SCH (07:50)
[2022-12-12] MEDS: CEFEPIME 2 GM in IV D5W 100 ML IV SCH ×2 (08:36→20:40)
[2022-12-12] MEDS: FOLIC ACID 1 MG TABLET PO SCH (08:36)
[2022-12-12 08:38] LABS: CALCIUM, SERUM 7.9 mg/dL (8.5-10.1); CREATININE 0.4 mg/dL (0.6-1.3); MAGNESIUM 1.6 mg/dL (1.8-2.4); PHOSPHORUS 3.6 mg/dL (2.5-4.9); POTASSIUM 3.4 mmol/L (3.5-5.1)
[2022-12-12] MEDS: Z GUARD REMEDY 4 OZ OINT TP SCH (09:12)
[2022-12-12] MEDS ORDERED: MAGNESIUM OXIDE 400 MG TABLET PO ONE (10:00)
[2022-12-12] MEDS ORDERED: POTASSIUM CHLORIDE 20 MEQ TAB.PRT.SR PO SCH (10:30)
[2022-12-12 16:00] VITALS: BP 106/75; TEMP 97.9; O2SAT 97
[2022-12-12 20:00] VITALS: BP 109/76; TEMP 97.5; O2SAT 98
[2022-12-13] MEDS: MORPHINE SULFATE INJ 2 MG/ML DISP.SYRIN IV PRN ×6 (00:59→21:36)
[2022-12-13 04:23] VITALS: BP 106/75
[2022-12-13] MEDS: LEVOTHYROXINE SODIUM 50 MCG TABLET PO SCH (07:55)
[2022-12-13 08:00] VITALS: BP 115/82; TEMP 98.4; O2SAT 97
[2022-12-13] MEDS: CEFEPIME 2 GM in IV D5W 100 ML IV SCH ×2 (09:04→21:30)
[2022-12-13] MEDS: FOLIC ACID 1 MG TABLET PO SCH (09:04)
[2022-12-13] MEDS: Z GUARD REMEDY 4 OZ OINT TP SCH (09:05)
[2022-12-13 16:00] VITALS: BP 112/85; TEMP 98.4; O2SAT 96
[2022-12-13 19:00] VITALS: BP 105/74; TEMP 98; O2SAT 97
[2022-12-13 20:00] VITALS: BP 105/74; TEMP 98; O2SAT 97
[2022-12-13] MEDS: Z GUARD REMEDY 4 OZ OINT TP PRN (22:21)
[2022-12-14 01:52] VITALS: BP 102/78
[2022-12-14] MEDS: MORPHINE SULFATE INJ 2 MG/ML DISP.SYRIN IV PRN ×4 (01:53→20:45)
[2022-12-14 06:04] VITALS: BP 102/77
[2022-12-14 07:30] VITALS: BP 109/83; TEMP 98.1; O2SAT 95
[2022-12-14] MEDS: LEVOTHYROXINE SODIUM 50 MCG TABLET PO SCH (07:50)
[2022-12-14] MEDS: CEFEPIME 2 GM in IV D5W 100 ML IV SCH ×2 (08:22→20:45)
[2022-12-14] MEDS: FOLIC ACID 1 MG TABLET PO SCH (08:22)
[2022-12-14] MEDS: Z GUARD REMEDY 4 OZ OINT TP PRN ×2 (08:59→09:09)
[2022-12-14] MEDS: Z GUARD REMEDY 4 OZ OINT TP SCH (09:10)
[2022-12-14 12:53] LABS: BASOPHILS % (AUTO) 1.1 % (0.0-2.0); EOSINOPHILS % (AUTO) 1.2 % (0.0-6.0); HEMATOCRIT 32 % (39-51); HEMOGLOBIN 10.2 g/dL (13.5-17.5); LYMPHOCYTES # (AUTO) 1.2 K/uL (0.8-4.8); MEAN CORPUSCULAR HEMOGLOBIN 37 PG (26.0-33.0); MEAN CORPUSCULAR HGB CONC 32 g/dl (31.0-36.0); MEAN CORPUSCULAR VOLUME 117 fL (80-96); MONOCYTES # (AUTO) 0.6 K/uL (0.1-1.30); MONOCYTES % (AUTO) 16.8 % (2.0-12.0); NEUTROPHILS # (AUTO) 1.7 K/uL (1.8-8.9); NEUTROPHILS % (AUTO) 46.9 % (43.0-81.0); PLATELET COUNT (AUTO) 166 K/uL (150-450); RED BLOOD CELL COUNT(AUTO) 2.75 MIL/uL (4.5-6.0); RED CELL DISTRIBUTION WIDTH 19.7 % (11.5-15.0); WHITE BLOOD COUNT (AUTO) 3.6 K/uL (4.3-11.0)
[2022-12-14 13:10] LABS: CALCIUM, SERUM 7.9 mg/dL (8.5-10.1); CREATININE 0.5 mg/dL (0.6-1.3); POTASSIUM 3.4 mmol/L (3.5-5.1)
[2022-12-14 20:45] VITALS: BP 111/80; TEMP 98.2; O2SAT 96
[2022-12-15] MEDS: MORPHINE SULFATE INJ 2 MG/ML DISP.SYRIN IV PRN ×6 (02:15→22:42)
[2022-12-15 07:30] VITALS: BP 112/80; TEMP 98.6; O2SAT 97
[2022-12-15] MEDS: LEVOTHYROXINE SODIUM 50 MCG TABLET PO SCH (08:23)
[2022-12-15] MEDS: FOLIC ACID 1 MG TABLET PO SCH (08:23)
[2022-12-15] MEDS: Z GUARD REMEDY 4 OZ OINT TP SCH (08:46)
[2022-12-15] MEDS: CEFEPIME 2 GM in IV D5W 100 ML IV SCH ×2 (09:45→20:37)
[2022-12-15] MEDS ORDERED: HUMIRA 40 MG/0.4 ML SQ ONE (11:00)
[2022-12-15 16:00] VITALS: BP 120/85; TEMP 97.5; O2SAT 97
[2022-12-15 20:00] VITALS: BP 118/72; TEMP 98; O2SAT 96
[2022-12-16] MEDS: MORPHINE SULFATE INJ 2 MG/ML DISP.SYRIN IV PRN ×5 (03:45→21:21)
[2022-12-16 08:00] VITALS: BP 104/75; TEMP 98.4; O2SAT 96
[2022-12-16] MEDS: LEVOTHYROXINE SODIUM 50 MCG TABLET PO SCH (08:26)
[2022-12-16] MEDS: CEFEPIME 2 GM in IV D5W 100 ML IV SCH (08:26)
[2022-12-16] MEDS: FOLIC ACID 1 MG TABLET PO SCH (08:26)
[2022-12-16] MEDS: Z GUARD REMEDY 4 OZ OINT TP SCH (08:33)
[2022-12-16 16:00] VITALS: BP 118/93; TEMP 97.3; O2SAT 96
[2022-12-16 20:00] VITALS: BP 106/81; TEMP 98.2; O2SAT 96
[2022-12-17] MEDS: MORPHINE SULFATE INJ 2 MG/ML DISP.SYRIN IV PRN ×6 (01:33→22:20)
[2022-12-17 07:00] VITALS: BP 114/79; TEMP 97.9; O2SAT 97
[2022-12-17] MEDS: LEVOTHYROXINE SODIUM 50 MCG TABLET PO SCH (07:26)
[2022-12-17] MEDS: FOLIC ACID 1 MG TABLET PO SCH (08:09)
[2022-12-17] MEDS: Z GUARD REMEDY 4 OZ OINT TP PRN (10:02)
[2022-12-17] MEDS: Z GUARD REMEDY 4 OZ OINT TP SCH (10:03)
[2022-12-17 16:00] VITALS: BP 116/83; TEMP 97.8; O2SAT 97
[2022-12-17 21:31] VITALS: BP 120/82; TEMP 98.1; O2SAT 96
[2022-12-18] MEDS: MORPHINE SULFATE INJ 2 MG/ML DISP.SYRIN IV PRN ×3 (03:31→12:10)
[2022-12-18 07:00] VITALS: BP 116/87; TEMP 98; O2SAT 96
[2022-12-18 07:45] VITALS: BP 117/89
[2022-12-18] MEDS: LEVOTHYROXINE SODIUM 50 MCG TABLET PO SCH (07:49)
[2022-12-18] MEDS: FOLIC ACID 1 MG TABLET PO SCH (08:01)
[2022-12-18] MEDS: Z GUARD REMEDY 4 OZ OINT TP PRN (08:01)
[2022-12-18] MEDS: Z GUARD REMEDY 4 OZ OINT TP SCH (08:02)
== END 2022-12-18 14:45 | DRG 280 ==
LOC: ER 10:27 → MED 13:44
PROVIDERS: ADMIT Internal Medicine; ATTEND Nurse Practitioner Acute Care
PROC: 0W9G3ZZ Drainage of Peritoneal Cavity, Percutaneous Approach (ICD-10-PCS; principal; 2022-12-07)
PROC: 0W9G3ZZ Drainage of Peritoneal Cavity, Percutaneous Approach (ICD-10-PCS; 2022-12-11)
DX: K70.31 Alcoholic cirrhosis of liver with ascites (principal); D68.9 Coagulation defect, unspecified; K76.6 Portal hypertension; L89.156 Pressure-induced deep tissue damage of sacral region; E44.1 Mild protein-calorie malnutrition; E88.09 Other disorders of plasma-protein metabolism, not elsewhere classified; L89.896 Pressure-induced deep tissue damage of other site; I69.354 Hemiplegia and hemiparesis following cerebral infarction affecting left non-dominant side; R62.7 Adult failure to thrive; D53.9 Nutritional anemia, unspecified; E03.9 Hypothyroidism, unspecified; F17.210 Nicotine dependence, cigarettes, uncomplicated; M06.9 Rheumatoid arthritis, unspecified; Z87.440 Personal history of urinary (tract) infections; Z88.2 Allergy status to sulfonamides; M79.7 Fibromyalgia; Z68.23 Body mass index [BMI] 23.0-23.9, adult; R53.1 Weakness; E80.6 Other disorders of bilirubin metabolism; R74.01 Elevation of levels of liver transaminase levels; S20.419A Abrasion of unspecified back wall of thorax, initial encounter; X58.XXXA Exposure to other specified factors, initial encounter; Y93.9 Activity, unspecified; L90.5 Scar conditions and fibrosis of skin; Z86.19 Personal history of other infectious and parasitic diseases; S30.810A Abrasion of lower back and pelvis, initial encounter; S20.412A Abrasion of left back wall of thorax, initial encounter; S20.411A Abrasion of right back wall of thorax, initial encounter; Y92.009 Unspecified place in unspecified non-institutional (private) residence as the place of occurrence of the external cause
CPT/HCPCS: 36415; 49083; 74170-TC; 76705-TC; 80048-TC; 80053-TC; 80076-TC; 81001; 82140-TC; 83605-TC; 83690-TC; 83735-TC; 84100-TC; 85025-TC; 85730-TC; 87040-TC; 87086-TC; 97110-TC; 97112-TC; 97530-TC; 97535-TC; A4216; A4223; A6253; A6403; G0378; J0692; J2270; J3370; J7050; J7060; P9047; Q9967

== ENCOUNTER 2022-12-28 16:01 | Emergency (ER) | payer OTHER ==
[~2022-12-28] VITALS: Ht 190.5 cm; Wt 77.1 kg
[2022-12-28 16:58] LABS: BASOPHILS # (AUTO) 0.1 K/uL (0.0-0.2); BASOPHILS % (AUTO) 1.3 % (0.0-2.0); EOSINOPHILS # (AUTO) 0.1 K/uL (0.0-0.7); EOSINOPHILS % (AUTO) 2.3 % (0.0-6.0); HEMATOCRIT 31 % (39-51); HEMOGLOBIN 10.1 g/dL (13.5-17.5); LYMPHOCYTES # (AUTO) 1.7 K/uL (0.8-4.8); LYMPHOCYTES % (AUTO) 38.7 % (20.0-44.0); MEAN CORPUSCULAR HEMOGLOBIN 32 PG (26.0-33.0); MEAN CORPUSCULAR HGB CONC 33 g/dl (31.0-36.0); MEAN CORPUSCULAR VOLUME 99 fL (80-96); MONOCYTES # (AUTO) 0.4 K/uL (0.1-1.30); MONOCYTES % (AUTO) 9.8 % (2.0-12.0); NEUTROPHILS # (AUTO) 2.1 K/uL (1.8-8.9); NEUTROPHILS % (AUTO) 47.9 % (43.0-81.0); PLATELET COUNT (AUTO) 189 K/uL (150-450); RED BLOOD CELL COUNT(AUTO) 3.15 MIL/uL (4.5-6.0); RED CELL DISTRIBUTION WIDTH 17.2 % (11.5-15.0); WHITE BLOOD COUNT (AUTO) 4.3 K/uL (4.3-11.0)
[2022-12-28 17:09] LABS: CALCIUM, SERUM 8.4 mg/dL (8.5-10.1); CREATININE 0.6 mg/dL (0.6-1.3); INR 1.2 (0.91-1.10); PARTIAL THROMBOPLASTIN TIME 28.5 SEC (24.3-34.3); POTASSIUM 4.3 mmol/L (3.5-5.1); PROTHROMBIN TIME 12.6 SECS (9.2-11.1)
[2022-12-28 20:17] VITALS: BP 112/71; TEMP 97.9; O2SAT 96
== END 2022-12-28 20:18 ==
LOC: ER 16:01
DX: R18.8 Other ascites (principal); M79.7 Fibromyalgia; M06.9 Rheumatoid arthritis, unspecified; F17.200 Nicotine dependence, unspecified, uncomplicated; Z88.2 Allergy status to sulfonamides; Z60.2 Problems related to living alone
CPT/HCPCS: 36415; 80048-TC; 85025-TC; 85730-TC

== ENCOUNTER 2022-12-29 10:32 | Emergency (ER) | payer OTHER ==
[~2022-12-29] VITALS: Ht 190.5 cm; Wt 74.8 kg
[2022-12-29 14:22] VITALS: BP 122/77; TEMP 97.9; O2SAT 100
== END 2022-12-29 14:49 ==
LOC: ER 10:52
DX: K74.60 Unspecified cirrhosis of liver (principal); R14.0 Abdominal distension (gaseous); M06.9 Rheumatoid arthritis, unspecified; M79.7 Fibromyalgia; F17.200 Nicotine dependence, unspecified, uncomplicated; Z88.2 Allergy status to sulfonamides; Z60.2 Problems related to living alone
CPT/HCPCS: 76705-TC

== ENCOUNTER 2023-06-12 23:35 | Emergency (ER) | payer OTHER ==
[~2023-06-12] VITALS: Ht 188 cm; Wt 73.0 kg
[~2023-06-12 23:35] MED LIST changes: +GABA300C PO; -HYDR-3980 PO; -VANC125C11 PO
[2023-06-12 23:41] VITALS: TEMP 98.5
[2023-06-13 00:50] LABS: HEMOGLOBIN 10.5 g/dL (13.5-17.5); RED BLOOD CELL COUNT(AUTO) 2.46 MIL/uL (4.5-6.0); WHITE BLOOD COUNT (AUTO) 3.5 K/uL (4.3-11.0)
[2023-06-13 00:51] LABS: BASOPHILS % (AUTO) 0.8 % (0.0-2.0); EOSINOPHILS # (AUTO) 0.1 K/uL (0.0-0.7); EOSINOPHILS % (AUTO) 1.9 % (0.0-6.0); HEMATOCRIT 27 % (39-51); LYMPHOCYTES # (AUTO) 1.4 K/uL (0.8-4.8); LYMPHOCYTES % (AUTO) 40.7 % (20.0-44.0); MEAN CORPUSCULAR HEMOGLOBIN 43 PG (26.0-33.0); MEAN CORPUSCULAR HGB CONC 39 g/dl (31.0-36.0); MEAN CORPUSCULAR VOLUME 110 fL (80-96); MONOCYTES # (AUTO) 0.3 K/uL (0.1-1.30); MONOCYTES % (AUTO) 7.9 % (2.0-12.0); NEUTROPHILS # (AUTO) 1.7 K/uL (1.8-8.9); NEUTROPHILS % (AUTO) 48.7 % (43.0-81.0); RED CELL DISTRIBUTION WIDTH 15.4 % (11.5-15.0)
[2023-06-13 00:52] LABS: PLATELET COUNT (AUTO) 34 K/uL (150-450)
[2023-06-13 00:56] LABS: CALCIUM, SERUM 8.4 mg/dL (8.5-10.1); CARBON DIOXIDE 32 mmol/L (21-32); CHLORIDE 98 mmol/L (98-107); CREATININE 0.6 mg/dL (0.6-1.3); GLUCOSE 120 mg/dL (74-106); POTASSIUM 3.2 mmol/L (3.5-5.1); SODIUM SERUM 139 mmol/L (136-145); UREA NITROGEN, BLOOD 4 mg/dL (7-18)
[2023-06-13 01:18] LABS: ALANINE AMINOTRANSFERASE 41 U/L (12-78); ALBUMIN 3.2 g/dL (3.4-5.0); ALCOHOL, BLOOD < 3 mg/dL (0-10); ALKALINE PHOSPHATASE 259 U/L (46-116); ASPARTATE AMINOTRANSFERASE 323 U/L (15-37); BILIRUBIN,TOTAL 1.1 mg/dL (0.2-1.0); NT-PRO BNP 23 pg/mL (0-125); TOTAL PROTEIN, SERUM 7.5 g/dL (6.4-8.2)
[2023-06-13 01:36] VITALS: BP 144/92; O2SAT 98
[2023-06-13] MEDS ORDERED: POTASSIUM CHLORIDE 20 MEQ TAB.PRT.SR PO ONE (01:40)
[2023-06-13] MEDS ORDERED: KETOROLAC TROMETHAMINE INJ 30 MG/ML VIAL ONE (01:40)
[2023-06-13] MEDS: POTASSIUM CHLORIDE 20 MEQ TAB.PRT.SR PO ONE (01:44)
[2023-06-13] MEDS: KETOROLAC TROMETHAMINE INJ 30 MG/ML VIAL IV ONE (01:44)
[2023-06-13 02:04] LABS: BASOPHILS % (MANUAL) 0 % (0.0-2.0); EOSINOPHILS % (MANUAL) 3 % (0-4); LYMPHOCYTES % (MANUAL) 31 % (16-48); MONOCYTES % (MANUAL) 10 % (0-11.0); NEUTROPHILS % (MANUAL) 56 (42-76); PLATELET ESTIMATE DECREASED
== END 2023-06-13 02:26 | disposition left against medical advice (07) ==
LOC: ER 23:37
DX: M25.552 Pain in left hip (principal); D64.9 Anemia, unspecified; R79.89 Other specified abnormal findings of blood chemistry; R94.31 Abnormal electrocardiogram [ECG] [EKG]; M79.7 Fibromyalgia; Z88.2 Allergy status to sulfonamides; Z60.2 Problems related to living alone; V89.2XXA Person injured in unspecified motor-vehicle accident, traffic, initial encounter; Y93.89 Activity, other specified; Y92.89 Other specified places as the place of occurrence of the external cause; Y99.8 Other external cause status
CPT/HCPCS: 99285; 93005; 71045; 74176; 36415; 96374; 85025; 85007; 80053; 84484; 83880; 80320; J1885; G0480